=== PATIENT | male | born 1980 | race Caucasian/White ===

== ENCOUNTER 2024-03-28 13:17 | Emergency (ER) | payer OTHER, SELFPAY ==
[2024-03-28 13:20] VITALS: BP 122/64
[2024-03-28 13:24] VITALS: BMI 27.5
[2024-03-28 13:34] LABS: Glucose - Point of Care 343 mg/dl (70-99)
--- NOTE | 2024-03-28 13:38 | ED.GENMED ---
History of Present Illness
General
Chief Complaint: Crisis Evaluation
Source: patient and previous hospital records
Exam Limitations: none
Time Seen by Provider: 03/28/24 13:37
Nursing documentation reviewed up to this point in time: agreed with
Travel History
Have you had any contact with someone who has COVID-19?: No
Do you have any symptoms of coronavirus? Fever > 100 degrees, chills, cough, shortness of breath, sore throat, loss of taste or smell, muscle aches, or headache?: No
History of Present Illness
History of Present Illness:
43-year-old male with history of type 1 diabetes mellitus, uncontrolled, schizoaffective disorder bipolar disorder presents for medical clearance patient denies headache, chest pain, trouble breathing or abdominal pain. He denies N/V/D/C.
Crisis states he is 302 for inability to care for himself, assistant case manager through [facility]'s 302 him because he was claiming he was not taking his medication. The [address] Whiteside to evaluate pt.
Past History
Past History
ED Past Medical History: HTN, Hypercholesterolemia, NIDDM, Psychiatric (Bipolar, ADHD, schizophrenia) and Other (Thrombocytopenia, fatty liver)
ED Past Surgical History: Appendectomy
Social History
Tobacco: Non-smoker
Alcohol: None
Drug: Former user (Cocaine/Meth)
Personal:
Living: with family
Family History
Family History: Negative Diabetes
Review of Systems
Review of Systems
Allergies reviewed?: Yes
All Other Systems: ROS reviewed and negative except as documented in HPI and ROS
Constitutional: Denies fever
Respiratory: Denies trouble breathing
Cardiac: Denies chest pain
ABD/GI: Denies abdominal pain, nausea, vomiting or diarrhea
Musculoskeletal: Reports no symptoms
Skin: Reports no symptoms
Neurological: Denies headache
Phy Exam
Physical Exam
Physical Exam:
GENERAL: No acute distress. A&Ox3.
CONSTITUTIONAL: Afebrile.
EYES: PERRL, conjunctivae normal
ENMT: moist mucus membranes, Pharynx nl
RESPIRATORY: Regular respirations, nonlabored, lungs clear.
CARDIOVASCULAR: Regular rate and rhythm, no murmurs, no rubs.
GI: Soft, nontender, normal BS
MUSCULOSKELETAL: Moves with ease. Well perfused.
SKIN: Warm, dry, pink
PSYCH: Normal mood and affect. Well kept, interactive and appropriate
NEUROLOGIC: Awake, alert and oriented. No focal neurological deficits
Course
Orders/Labs/Results
Orders:
Orders
03/28/24 13:49
Alcohol Urgent
Complete Blood Count/With Diff Urgent
Comprehensive Metabolic Panel Urgent
Hemoglobin A1c [Glycohemoglobin (HgbA1c)] Urgent
[place] Urgent
03/28/24 15:40
Insulin Human Regular [Novolin R] 10 units IV NOW STA
03/28/24 16:08
Insulin Aspart [NOVOLOG vial] 10 units SC NOW STA
03/28/24 18:28
0.9% Sodium Chloride 1000 ml [Nss] 1,000 ml IV BOLUS
03/28/24 18:47
Drug Screen, Urine [Urine Drug Abuse Screen] Urgent
Date Specimen was Collected: 03/28/24
Time Specimen was Collected: 06:45
03/28/24 20:00
Benztropine [Cogentin] 0.5 mg PO BID
[place] Carbonate Extended Rel [Lithobid (Extended Release)] 600 mg PO BID
Risperidone [Risperdal] 2 mg PO BID
03/28/24 20:24
Bedside Glucose- Treatment ONCE
03/28/24 22:00
Trazodone [Desyrel] 100 mg PO HS
03/29/24 01:10
Dextrose 50%-Water [Dextrose 50% Syringe] 12.5 grams IV [id number] PRN
Glucagon [GlucaGen] 1 mg IM PRN PRN
Bedside Glucose Monitoring As Directed
Frequency: AC&HS
Additional Instructions:: Change to q6h if pt on TPN, tube feeding or not eating
03/29/24 01:11
Accucheck [Bedside Glucose Monitoring] As Directed
Frequency: q4h
03/29/24 01:47
Accucheck [Bedside Glucose Monitoring] As Directed
Frequency: AC&HS
03/29/24 Breakfast
1800 calorie (15 carb) Diabetic
At Your Request: Full Participation
03/29/24 07:30
Insulin Aspart Corrective Low [Novolog Flexpen-Low Resistance] See Protocol SC AC
Abnormal Lab Results
03/28/24 03/28/24 03/28/24
13:19 13:49 17:42
MPV 12.7 H fL
(7.4-10.4)
Sodium 134 L mmol/L
(135-145)
BUN 8 L mg/dl
(9-20)
Creatinine 0.4 L mg/dL
(0.7-1.3)
Glucose 354 H mg/dl
(70-99)
[place] 0.5 L mmol/L
(0.6-1.2)
POC Glucose 343 H mg/dl 299 H mg/dl
(70-99) (70-99)
03/28/24 03/28/24 03/28/24
18:42 20:45 22:32
MPV
Sodium
BUN
Creatinine
Glucose
[place]
POC Glucose 323 H mg/dl 215 H mg/dl 220 H mg/dl
(70-99) (70-99) (70-99)
03/28/24 03/29/24
23:34 04:21
MPV
Sodium
BUN
Creatinine
Glucose
[place]
POC Glucose 261 H mg/dl 267 H mg/dl
(70-99) (70-99)
03/28/24 13:49
03/28/24 19:45
Vital Signs
Initial and Last Documented VS:
Initial Vital Signs
Temp Pulse Resp BP Pulse Ox
98.1 F 95 18 122/64 99
03/28/24 13:20 03/28/24 13:20 03/28/24 13:20 03/28/24 13:20 03/28/24 13:20
Last Documented Vital Signs
Temp Pulse Resp BP Pulse Ox
98.6 F 88 16 95/56 98
03/28/24 18:37 03/29/24 06:53 03/29/24 06:53 03/29/24 06:53 03/29/24 06:53
MDM/Problems Addressed
MDM/Problems Addressed:
43-year-old male with history of type 1 diabetes mellitus, uncontrolled, schizoaffective disorder bipolar disorder presents
Crisis states he is 302 for inability to care for himself, assistant case manager through [facility]'s 302 him because he was claiming he was not taking his medication. The [address] Whiteside to evaluate pt.
CBC normal
CMP glucose 354 otherwise normal
[place] level 0.5, (0.6-1.2 therapeutic)
6:[address] Cervantes upholds the 302, wrote medication orders.
Until blood sugar is less than 200, psyche facility will not take him.
After Insulin BS 299 at 5:42
Pt resting, quiet with intermittent loud verbal outbursts
Case discussed with Dr. Alves who will assume care from this point
*Critical Care Note
Total Time (30-74mins, 75-104mins- exclusive of procedures): Not Applicable
ED Attending Note
-
Portions of this chart may have been created with voice recognition software.� Occasional wrong word or��sound alike� substitutions may have occurred due to the inherent limitations of voice recognition software.
Discharge Plan
Departure
Patient Disposition: Psych Facility
Date of Disposition: 03/29/24
Time of Disposition: 06:09
Patient Status:: 302
Discharge Problem:
Schizophrenia
Prescriptions:
No Action
(DME) pen needle, diabetic 1 EACH needle
1 ea MC ACHS Qty: 100 0RF
(DME) lancets 1 EACH misc
1 ea MC QID Qty: 200 0RF
Rx Instructions:
Contour next lancets
E11.65
(DME) Accu-Chek Guide test strips 1 EACH strip
1 ea MC ACHS Qty: 200 0RF
insulin glargine [Lantus Solostar U-100 Insulin] 300 UNITS/3 ML insulin pen
20 units SC HS
cholecalciferol (vitamin D3) 2,000 UNITS tablet
4,000 units PO DAILY
cyanocobalamin (vitamin B-12) 1,000 MCG tablet
1,000 mcg PO DAILY
trazodone 50 mg Tablet
50 mg PO HS PRN (Reason: insomnia) 7 Days Qty: 7 0RF
lorazepam 0.5 mg Tablet
0.5 mg PO TID 3 Days Qty: 9 0RF
lithium carbonate 300 mg Capsule
600 mg PO BID 30 Days Qty: 120 0RF
benztropine 1 mg Tablet
1 mg PO BID PRN (Reason: stiffness) 2 Days Qty: 4 0RF
lorazepam 1 mg Tablet
0.5 mg PO Q8HPRN PRN (Reason: agitation/anxiety) 2 Days Qty: 6 0RF
insulin aspart U-100 [Novolog FlexPen U-100 Insulin] 100 unit/mL (3 mL) Insulin Pen
8 unit SC AC 30 Days Qty: 7.2 0RF
risperidone 0.5 mg Tablet,Disintegrating
0.5 mg PO Q4HPRN PRN (Reason: agitation) 1 Days Qty: 6 0RF
risperidone 1 mg Tablet,Disintegrating
2 mg PO HS 30 Days Qty: 60 0RF
risperidone 1 mg Tablet,Disintegrating
1 mg PO DAILY 30 Days Qty: 30 0RF
Referrals:
UNKNOWN,NO INTERVIEW [Family Provider] -
Interventions
Interventions:
*Risk Screen - Suicide Last Done: 03/28/24 13:20
*General Assessment Last Done: 03/28/24 13:20
*Neglect/Abuse Screening Last Done: 03/28/24 13:20
ED-Psychological Assessment Last Done: 03/29/24 06:53
Discharge Date and Time
Print Language: GABONESE
[2024-03-28 14:03] LABS: % Basophils 1.2 % (0-2); % Eosinophils 5.2 % (0-6); % Immature Granulocytes 0.3 % (0-0.5); % Lymphocytes 28.9 % (20.5-51.1); % Neutrophils 58.4 % (42.2-75.2); Absolute Basophils 0.1 10^3/uL (0-0.2); Absolute Eosinophils 0.4 10^3/uL (0-0.7); Absolute Lymphocytes 2.2 10^3/uL (1.2-3.4); Absolute Monocytes 0.5 10^3/uL (0.1-0.6); Absolute Neutrophils 4.5 10^3/uL (1.4-6.5); Hematocrit 42.4 % (39.0-52.0); Hemoglobin 14.4 g/dL (13.0-18.0); Mean Corpuscular Hgb 29.1 pg (27.0-31.0); Mean Corpuscular Volume 85.7 fL (80.0-94.0); Mean Platelet Volume 12.7 fL (7.4-10.4); Nucleated Red Blood Cells % 0 % (-); Platelet Count 146 10^3/uL (130-400); Red Blood Cell Count 4.95 10^6/uL (4.70-6.10); Red Cell Dist. Width 12.8 % (11.5-14.5); White Blood Cell Count 7.6 10^3/uL (4.8-10.8)
[2024-03-28 14:24] LABS: ALT (SGPT) 14 U/L (0-50); AST (SGOT) 17 U/L (17-59); Albumin 4.7 g/dl (3.5-5.0); Alkaline Phosphatase 112 U/L (38-126); Blood Urea Nitrogen 8 mg/dl (9-20); Calcium 9.7 mg/dl (8.4-10.2); Carbon Dioxide 22 mmol/L (22-30); Chloride 98 mmol/L (98-107); Estimated Creatinine Clearance > 125 ml/min; Glucose 354 mg/dl (70-99); Lithium 0.5 mmol/L (0.6-1.2); Potassium 4.3 mmol/L (3.5-5.1); Sodium 134 mmol/L (135-145); Total Bilirubin 0.8 mg/dl (0.2-1.3); Total Protein 7.8 g/dl (6.3-8.2); eGFR > 60.00
[2024-03-28 14:27] LABS: Alcohol None Detected
[2024-03-28] MEDS: NOVOLOG vial 10 UNITS SC (16:14)
--- NOTE | 2024-03-28 16:47 | W.PN.UPDATE ---
Update Note
Progress Note Update
Pt is 43 yo male brought in on 302 by supervisor residential at [facility], for reportedly refusal to continue taking Insulin, suicidal ideation. On exam, pt unkempt, disheveled, slowed, with flat affect, indifferent attitude about risks of not taking
Insulin. Pt mostly admits to the 302 allegations, states he is tired of taking Insulin or doing the work involved in taking care of his diabetes. Briefly reviewed the [facility] outpatient record, medications. Joyce level 0.5 at 1349 today.
Imp: Schizoaffective d/o, bipolar type, depressed
Rec: 302 upheld. Will continue evaluation/observation/ inpatient psych placement effort
Will continue current outpatient medications. Will follow
[2024-03-28 17:43] LABS: Glucose - Point of Care 299 mg/dl (70-99)
[2024-03-28 18:37] VITALS: BP 107/68
[2024-03-28 18:43] LABS: Glucose - Point of Care 323 mg/dl (70-99)
[2024-03-28 19:09] LABS: Amphetamines Negative (Negative); Barbiturates Negative (Negative); Benzodiazepines Negative (Negative); Buprenorphine Negative (Negative); Cocaine Negative (Negative); Marijuana Negative (Negative); Methadone Negative (Negative); Methamphetamines Negative (Negative); Opiates Negative (Negative); Phencyclidine Negative (Negative); Tricyclic Antidepressants Negative (Negative)
[2024-03-28] MEDS: COGENTIN 0.5 MG PO (20:00)
[2024-03-28] MEDS: LITHOBID (EXTENDED RELEASE) 600 MG PO (20:00)
[2024-03-28] MEDS: RISPERDAL 2 MG PO (20:00)
[2024-03-28 20:46] LABS: Glucose - Point of Care 215 mg/dl (70-99)
[2024-03-28 22:34] LABS: Glucose - Point of Care 220 mg/dl (70-99)
[2024-03-28 23:35] LABS: Glucose - Point of Care 261 mg/dl (70-99)
--- NOTE | 2024-03-29 01:13 | ED.CRISIS ---
ED Crisis Note
ED Crisis Note
Subjective:
Managing diabetic orders. Blood sugar 200+.
Assessment/Plan:
Low insulin order set ordered with the help of the hospitalist. He did not assume any care of the patient. He was assisting in ordering the insulin order set.
[2024-03-29 04:23] LABS: Glucose - Point of Care 267 mg/dl (70-99)
[2024-03-29 06:53] VITALS: BP 95/56
[2024-03-29] MEDS: COGENTIN 0.5 MG PO ×2 (08:05→20:21)
[2024-03-29] MEDS: LITHOBID (EXTENDED RELEASE) PO ×2 (08:05→08:07)
[2024-03-29] MEDS: RISPERDAL 2 MG PO ×2 (08:05→20:21)
[2024-03-29 08:53] LABS: Glycohemoglobin (HgbA1c) 15.3 % (4.0-5.6)
[2024-03-29] MEDS: NOVOLOG FLEXPEN-LOW RESISTANCE 3 UNITS SC (09:04)
[2024-03-29 09:57] LABS: Glucose - Point of Care 345 mg/dl (70-99)
[2024-03-29] MEDS: NOVOLOG vial 10 UNITS SC (10:07)
[2024-03-29 13:09] LABS: Glucose - Point of Care 217 mg/dl (70-99)
[2024-03-29] MEDS: NOVOLOG FLEXPEN-LOW RESISTANCE 2 UNITS SC (13:09)
--- NOTE | 2024-03-29 15:37 | CON.MD ---
Consultation - Medical
-
patient seen chart reviewed. mr thornton is well known to me from [facility] where he was seen in out patient and in the php. he is currently residing in their housing. he has a hx of schizoaffective d/o bipolar type and has had
many hospital stays and was rx several x in the php as well in the past. he has been on many antipsychotic medications as well as mood stabilizers in the past but currently lithium carbonate 1200 mg daily trazodone 100 mg q hs and risperdal 2 mg po
bid and cogentin which have been ordered. lithium level is o.5 patient was 302 committed petition filed by personnel at the home where he lives (it is a f facility) alleging he told them he was committing suicide by not taking care of his iddm
....not taking his insulin or monitoring blood sugar etc. he told me he was tired of his legal issues. said he is on 'seven years parole' (did he mean probation?) sleep not great appetite ok he is not currently evidencing overt psychosis. he
is not currently suicidal.
past psych hx see above
medical hx blood sugar elevated currently 217 had been 346 A1c 15.3 ua ketones
fh none
substance tox screen clean hx of using cannabis in past.
social hx lives in f housing. mom supportive see above re legal issues
mse alert ox3 a bit disheveled cooperative speech and thought process nl no overt psychosis depressed affect sravan denied current si insight judgment lacking
dx schizoaffective d.o depressed currently bipolar type
plan continue w current meds. blood sugar will have to be under 200 for psych may need to file a 303 tomorrow as hearings are on wednesday and psych won't take him if the 302 is almost ativan prn agitation anxiety
[2024-03-29 17:55] LABS: Glucose - Point of Care 303 mg/dl (70-99)
[2024-03-29] MEDS: NOVOLOG FLEXPEN-LOW RESISTANCE 4 UNITS SC (17:55)
[2024-03-29 19:11] VITALS: BP 129/85
[2024-03-29] MEDS: LITHOBID (EXTENDED RELEASE) 600 MG PO (20:21)
[2024-03-29 21:31] LABS: Glucose - Point of Care 505 mg/dl (70-99)
[2024-03-29] MEDS: LANTUS 0.25 UNITS SC (21:33)
[2024-03-30 06:33] LABS: Glucose - Point of Care 253 mg/dl (70-99)
[2024-03-30] MEDS: LITHOBID (EXTENDED RELEASE) PO ×2 (07:18→07:29)
[2024-03-30] MEDS: RISPERDAL 2 MG PO ×2 (07:18→20:15)
[2024-03-30] MEDS: COGENTIN 0.5 MG PO ×2 (07:25→20:15)
--- NOTE | 2024-03-30 07:27 | CON.HOSP ---
Family Physician
-
Family Physician: NO INTERVIEW UNKNOWN
Chief Complaint
-
Hyperglycemia
History of Present Illness
43 male insulin-dependent diabetes schizoaffective disorder from [place] [address] by residential education and outreach coordinator due to concerns reported suicidal ideation patient reportedly refusing to take his diabetic medications insulin and
attempt to commit suicide. Evaluated by psychiatry 302 has been upheld. Awaiting placement in psychiatric hospital however will not take while his sugars remain uncontrolled. Hospitalist consulted for help diabetes management. Patient at this
time in no acute distress vital signs stable calm cooperative ambulating without issues. Denies pain. Reports polydipsia polyphagia denies polyuria. Currently denies thoughts of harming self or others. Calm cooperative compliant with medications
given here. Has not required as needed Ativan so far. A1c 15.3 uncontrolled diabetes, hyperglycemia, and mild pseudohyponatremia-otherwise labs unremarkable.
Medical History
Past Medical History
Past Medical History: Reports Other (As above)
Past Surgical History: Reports Other (As above)
Family History
Family History: Reviewed & Not Pertinent
Allergies / Home Medications
Allergies reflects when Allergies were last updated in [employer].
Home Medications with original date entered in [employer]
Allergy/Medication List:
Allergies
Allergy/AdvReac Type Severity Reaction Status Date / Time
No Known Allergies Allergy Verified 03/28/24 13:20
Home Medications
insulin glargine 100 unit/mL (3 mL) subcutaneous pen (Lantus Solostar U-100 Insulin) 25 units SC HS Diabetes 01/21/22
insulin aspart U-100 100 unit/mL (3 mL) subcutaneous pen (Novolog FlexPen U-100 Insulin aspart) 8 unit (0.08 mL) SC AC 30 days #7.2 mL 04/22/22
benztropine 0.5 mg tablet 0.5 mg PO BID 03/29/24
lithium carbonate 600 mg capsule 1,200 mg PO HS 03/29/24
metformin 850 mg tablet 850 mg PO BID 03/29/24
risperidone 2 mg tablet 2 mg PO DAILY 03/29/24
risperidone 3 mg tablet 3 mg PO HS 03/29/24
Review of Systems
-
A 12 point Review of Systems was completed except as noted: Yes
Constitutional: Reports Other (As below)
Physical Exam
Vital Signs
Vital Signs
Temp Pulse Resp BP Pulse Ox
98.6 F 99 16 129/85 100
03/28/24 18:37 03/29/24 19:11 03/29/24 19:11 03/29/24 19:11 03/29/24 19:11
Physical Exam
General: Other (As below)
Laboratory Results
-
Laboratory Results
03/28/24 13:49
03/28/24 19:45
Total Bilirubin 0.8 mg/dl (0.2-1.3) 03/28/24 13:49
AST 17 U/L (17-59) 03/28/24 13:49
ALT 14 U/L (0-50) 03/28/24 13:49
Alkaline Phosphatase 112 U/L (38-126) 03/28/24 13:49
Impression / Plan
-
ROS
General: Denies fever chills night sweats unexpected weight loss
Neuro: Denies seizure shaking loss of consciousness dizziness vertigo
Psych: denies depression hallucinations confusion manic episodes
Endocrine: Reports polydipsia polyphagia denies polydipsia heat/cold intolerance
HEENT: Denies blindness visual disturbances epistaxis
Pulmonary: denies coughing hemoptysis sneezing sob dyspnea on exertion
Cardiovascular: denies chest pain palpitations leg swelling
Hematology: denies signs symptoms of anemia easy bruising/bleeding
Gastrointestinal: denies nausea vomiting diarrhea constipation hematemesis hematochezia melena
Genito-Urinary: denies retention incontinence dysuria
Musculoskeletal: denies joint pain weakness
Dermatology: denies rash laceration bruising
Physical Exam
General: No pallor, cyanosis, or jaundice.
HEENT: Throat clear. PERRLA Normocephalic atraumatic
NECK: Supple. No JVD Carotid Bruits
RESPIRATORY: Lungs clear to auscultation. No crackles wheezes stridor
CVS: S1, S2 normal. RRR. No murmur, rub or gallop.
ABDOMEN: Soft, non-tender. No distension. BS+/normal.
EXTREMITIES: No peripheral cyanosis or edema.
METAL MINER: AOx3
Psych: Calm cooperative denies current suicidal ideation and thoughts of harming self or others
IMPRESSION:
43 male insulin-dependent diabetes schizoaffective disorder from [place] [address] by residential education and outreach coordinator due to concerns reported suicidal ideation patient reportedly refusing to take his diabetic medications insulin and
attempt to commit suicide. Evaluated by psychiatry 302 has been upheld. Awaiting placement in psychiatric hospital however will not take while his sugars remain uncontrolled. Hospitalist consulted for help diabetes management. Patient at this
time in no acute distress vital signs stable calm cooperative ambulating without issues. Denies pain. Reports polydipsia polyphagia denies polyuria. Currently denies thoughts of harming self or others. Calm cooperative compliant with medications
given here. Has not required as needed Ativan so far. A1c 15.3 uncontrolled diabetes, hyperglycemia, and mild pseudohyponatremia-otherwise labs unremarkable.
PLAN:
#302 suicidal ideation
#Schizoaffective disorder
Management as per psych
#Diabetes uncontrolled hyperglycemia
Resume home diabetic medications
Metformin 850 mg p.o. twice daily
Lantus 25 units at bedtime
Premeal insulin 8 units, hold if not eating
Diabetes nursing practitioner consult requested
Continue disposition efforts transfer to inpatient psych hospital as per psych
Will continue to follow
I spent a total of 75 minutes with the patient or on the floor. More than 50% of this time involved counseling and coordination of care.
[2024-03-30 09:05] VITALS: BP 119/73
[2024-03-30] MEDS: GLUCOPHAGE 850 MG PO ×2 (09:06→18:08)
[2024-03-30 09:09] LABS: Glucose - Point of Care 272 mg/dl (70-99)
[2024-03-30] MEDS: NOVOLOG FLEXPEN-LOW RESISTANCE 3 UNITS SC ×2 (09:10→18:00)
[2024-03-30] MEDS: NOVOLOG FLEXPEN 8 UNITS SC (09:11)
--- NOTE | 2024-03-30 09:55 | PN.DE.MGMTRT ---
Insulin Management
- -
03/30/2024 Diabetes Management Consult
Patient presented to ED for crisis evaluation. Currently living in [facility], CW concerned patient refusing to take insulin in an attempted suicide. PMH includes schizoaffective disorder, bipolar, depression, HCL, HTN, type 2 diabetes
requiring insulin.
Patient is awake alert and laying flat. Attempted to discuss his diabetes management prior to admission. He states he has been diagnosed with diabetes for 30 years. Originally took glipizide and metformin but then in 2019 transitioned to insulin.
Patient states he has not taken his insulin in over a year or tested his blood sugar during that time. A1C is 15.3%, cr .4, eGFR >60.
Patient received 25 units lantus @ hs last evening, fasting glucose this AM 272. Will increase HS lantus to 28 units.
Received reported home dose of novolog 8 units this AM with 3 units corrective insulin and 850mg metformin. Will assess pre lunch glucose and adjust insulin if needed.
Patient for possible in patient psych treatment facility.
Diabetes History
- -
Type of Diabetes: 2 requiring insulin
Pre-Admission Diabetes Regimen
Lab Results
Hemoglobin A1c 15.3 % (4.0-5.6) H 03/28/24 13:49
Insulin Pump Settings
IP Diabetes Regimen
03/29/24 03/29/24 03/29/24
09:56 13:08 17:54
POC Glucose 345 H 217 H 303 H
03/29/24 03/30/24 03/30/24
21:30 06:30 09:08
POC Glucose 505 H* 253 H 272 H
Patient Education
[2024-03-30 12:35] LABS: Glucose - Point of Care 203 mg/dl (70-99)
--- NOTE | 2024-03-30 13:14 | W.PN.UPDATE ---
Update Note
Progress Note Update
patient seen chart reviewed. patient is being cooperative with staff here who are managing his psych and his diabetic meds. blood sugar is too high for tf to psych . dr layne and ms che now managing. patient is requesting to take all lithium
q hs which is fine even preferable. we will go forward with 303 and continue efforts to get him in psych facility once dm is adequately managed.
[2024-03-30] MEDS: NOVOLOG FLEXPEN-LOW RESISTANCE 2 UNITS SC (13:23)
[2024-03-30] MEDS: NOVOLOG FLEXPEN 10 UNITS SC ×2 (13:32→18:00)
[2024-03-30] MEDS: NOVOLOG FLEXPEN SC (15:09)
[2024-03-30 18:00] LABS: Glucose - Point of Care 259 mg/dl (70-99)
[2024-03-30] MEDS: LITHOBID (EXTENDED RELEASE) 600 MG PO (20:15)
[2024-03-30 22:15] LABS: Glucose - Point of Care 252 mg/dl (70-99)
[2024-03-30] MEDS: LANTUS 0.280000000000000027 UNITS SC (22:51)
[2024-03-30 23:30] VITALS: BP 111/69
--- NOTE | 2024-03-31 07:19 | W.PN.HOSP.TC ---
Today's Communication/Plan
-
Increased insulin regimen as per DM RAW SAMPLER
cont disposition efforts transfer to inpt psych
Assessment / Plan
Assessment / Plan
Physical Exam
General: No pallor, cyanosis, or jaundice.
HEENT: Throat clear. PERRLA Normocephalic atraumatic
NECK: Supple. No JVD Carotid Bruits
RESPIRATORY: Lungs clear to auscultation. No crackles wheezes stridor
CVS: S1, S2 normal. RRR. No murmur, rub or gallop.
ABDOMEN: Soft, non-tender. No distension. BS+/normal.
EXTREMITIES: No peripheral cyanosis or edema.
CYTOGENETICIST: AOx3
Psych: Calm cooperative denies current suicidal ideation and thoughts of harming self or others
IMPRESSION:
43 male insulin-dependent diabetes schizoaffective disorder from [place] [address] by residential business continuity coordinator due to concerns reported suicidal ideation patient reportedly refusing to take his diabetic medications insulin and
attempt to commit suicide. Evaluated by psychiatry 302 has been upheld. Awaiting placement in psychiatric hospital however will not take while his sugars remain uncontrolled. Hospitalist consulted for help diabetes management. Patient at this
time in no acute distress vital signs stable calm cooperative ambulating without issues. Denies pain. Reports polydipsia polyphagia denies polyuria. Currently denies thoughts of harming self or others. Calm cooperative compliant with medications
given here. Has not required as needed Ativan so far. A1c 15.3 uncontrolled diabetes, hyperglycemia, and mild pseudohyponatremia-otherwise labs unremarkable.
PLAN:
#302 suicidal ideation
#Schizoaffective disorder
Management as per psych
#Diabetes uncontrolled hyperglycemia
Resume home diabetic medications
Metformin 850 mg p.o. twice daily
home Lantus 25 units at bedtime
home Premeal insulin 8 units
03/31 Diabetes nursing practitioner consult appreciated agree increase in Lantus HS to 32U and Premeal insulin increased to 14
Continue disposition efforts transfer to inpatient psych hospital as per psych
Will continue to follow
I spent a total of 35 minutes with the patient or on the floor. More than 50% of this time involved counseling and coordination of care.
Anticipated Discharge: 24 - 48 hours
Subjective/Interval History
-
Date of Service: March 31, 2024
Seen and examined at bedside no acute distress resting comfortably in bed. Denies new acute issues. Flat affect.
Objective Data
-
Vital Signs:
Vital Signs
Temp Pulse Resp BP Pulse Ox
97.8 F 88 16 111/69 98
03/30/24 09:05 03/30/24 23:30 03/30/24 23:30 03/30/24 23:30 03/30/24 23:30
--- NOTE | 2024-03-31 07:43 | PN.DE.MGMTRT ---
Insulin Management
- -
03/31/2024 Diabetes Management Follow up
Patient presented to ED for crisis evaluation. Currently living in [facility], CW concerned patient refusing to take insulin in an attempted suicide. PMH includes schizoaffective disorder, bipolar, depression, HCL, HTN, type 2 diabetes
requiring insulin.
Patient is awake alert and laying flat. Attempted to discuss his diabetes management prior to admission. He states he has been diagnosed with diabetes for 30 years. Originally took glipizide and metformin but then in 2019 transitioned to insulin.
Patient states he has not taken his insulin in over a year or tested his blood sugar during that time. A1C is 15.3%, cr .4, eGFR >60.
Patient received 25 units lantus @ hs last evening, fasting glucose not reported yet. Glucose range yesterday 203 to 259.
Novolog increased to 14 units AC with corrective insulin. I spoke to patient nurse, she will text fasting glucose when obtained.
Patient for possible in patient psych treatment facility.
Diabetes History
- -
Type of Diabetes: 2 requiring insulin
Pre-Admission Diabetes Regimen
Lab Results
Hemoglobin A1c 15.3 % (4.0-5.6) H 03/28/24 13:49
Insulin Pump Settings
IP Diabetes Regimen
03/30/24 03/30/24 03/30/24
09:08 12:34 17:59
POC Glucose 272 H 203 H 259 H
03/30/24
22:14
POC Glucose 252 H
Patient Education
[2024-03-31 09:09] LABS: Glucose - Point of Care 213 mg/dl (70-99)
[2024-03-31 09:30] VITALS: BP 121/76
[2024-03-31] MEDS: LITHOBID (EXTENDED RELEASE) 600 MG PO (10:02)
[2024-03-31] MEDS: GLUCOPHAGE 850 MG PO (10:02)
[2024-03-31] MEDS: COGENTIN 0.5 MG PO (10:03)
[2024-03-31] MEDS: RISPERDAL 2 MG PO (10:03)
[2024-03-31] MEDS: NOVOLOG FLEXPEN-MODERATE RESISTANCE 3 UNITS SC (10:04)
[2024-03-31] MEDS: NOVOLOG FLEXPEN 14 UNITS SC (10:06)
[2024-03-31 13:14] LABS: Glucose - Point of Care 79 mg/dl (70-99)
--- NOTE | 2024-03-31 13:32 | W.PN.UPDATE ---
Update Note
Progress Note Update
patient seen chart reviewed. blood sugars in sufficient control to allow for transfer to [facility] this am. suki was appropriate. we discussed upcoming hearing. he agreed to stipulate to up to 15 days in patient treatment and was dc'ed to
[facility] after the commitment hearing this am.
[2024-03-31] MEDS: NOVOLOG FLEXPEN SC (14:18)
[2024-03-31] MEDS: NOVOLOG FLEXPEN-MODERATE RESISTANCE SC (14:19)
== END 2024-03-31 13:40 ==
LOC: EMR 13:17
PROVIDERS: Registered Nurse; EMERGENCY PHYSICIAN Emergency Medicine; OTHER PHYSICIAN Psychiatry & Neurology Psychiatry
DX: R45.851 Suicidal ideations (principal); F25.0 Schizoaffective disorder, bipolar type; Z02.79 Encounter for issue of other medical certificate; E10.65 Type 1 diabetes mellitus with hyperglycemia; Z91.128 Patient's intentional underdosing of medication regimen for other reason; I10 Essential (primary) hypertension; E10.9 Type 1 diabetes mellitus without complications; E78.00 Pure hypercholesterolemia, unspecified; K76.0 Fatty (change of) liver, not elsewhere classified; F90.9 Attention-deficit hyperactivity disorder, unspecified type
CPT/HCPCS: 99285; 96374; 96372 ×12; 80053; 80178; 80306; 82077; 82962; 83036; 85025

== ENCOUNTER 2024-06-08 17:39 | Emergency (ER) | payer OTHER, SELFPAY ==
[2024-06-08 17:41] VITALS: BP 134/85
--- NOTE | 2024-06-08 18:27 | ED.GENMED ---
History of Present Illness
<Isha Young PA-C - Last Filed: 06/08/24 21:42>
General
Chief Complaint: Skin Surface Trauma
Source: patient
Exam Limitations: none
Time Seen by Provider: 06/08/24 18:25
Nursing documentation reviewed up to this point in time: agreed with
History of Present Illness
History of Present Illness:
This is a 43 y/o male with a hx of insulin dependent diabetes, bipolar disorder, ADHD, presenting to the emergency department today with concerns to a cut to his finger following an injury with a metal can. Patient states that he was opening a metal
can when he cut the tip of his finger. He notes some mild bleeding. Patient notes deformity to his finger nail. Patient denies any bony pain, inability to range hand or fingers. Patient states that he is not up to date on his tetanus vaccination.
Patient denies any other injuries.
Past History
<Isha Young PA-C - Last Filed: 06/08/24 21:42>
Past History
ED Past Medical History: HTN, Hypercholesterolemia, NIDDM, Psychiatric (Bipolar, ADHD, schizophrenia) and Other (Thrombocytopenia, fatty liver)
ED Past Surgical History: Appendectomy
Social History
Tobacco: Non-smoker
Alcohol: None
Drug: Former user (Cocaine/Meth)
Personal:
Living: with family
Family History
Family History: Negative Diabetes
Review of Systems
<Isha Young PA-C - Last Filed: 06/08/24 21:42>
Review of Systems
All Other Systems: ROS reviewed and negative except as documented in HPI and ROS
Phy Exam
<GUERLINE Bowser Last Filed: 06/08/24 21:42>
Physical Exam
Physical Exam:
General: Patient is well appearing and in no acute distress; non-toxic
Skin: Warm and dry, no rashes or erythema. there is a jagged edge to the tip of the first right fingernail. No subungual hematoma. No active bleeding. There is a small abrasion to the lateral aspect of the first right DIP. Brisk capillary refill.
Head: Normocephalic, atraumatic
Eyes: Sclera non-icteric. EOMs intact.
Cardiac: Regular rate
Pulm: Normal respiratory effort
Abdomen: No abdominal tenderness
Musculoskeletal: Full range of motion and 5/5 strength of bilateral phalanges. No bony tenderness to palpation. No palpable bony deformities.
Psychiatric: Appropriate mood and affect.
Course
<Isha Young PA-C - Last Filed: 06/08/24 21:42>
Orders/Labs/Results
Orders:
Orders
06/08/24 18:51
Tetanus/Diphth/Acelpertussis [Adacel] 0.5 ml IM .ONCE ONE
Vital Signs
Initial and Last Documented VS:
Initial Vital Signs
Temp Pulse Resp BP Pulse Ox
98.5 F 99 18 134/85 98
06/08/24 17:41 06/08/24 17:41 06/08/24 17:41 06/08/24 17:41 06/08/24 17:41
Last Documented Vital Signs
Temp Pulse Resp BP Pulse Ox
98.5 F 99 18 134/85 98
06/08/24 17:41 06/08/24 17:41 06/08/24 17:41 06/08/24 17:41 06/08/24 17:41
<Yulisa Kamara DO - Last Filed: 06/08/24 19:32>
Orders/Labs/Results
Orders:
Orders
06/08/24 18:51
Tetanus/Diphth/Acelpertussis [Adacel] 0.5 ml IM .ONCE ONE
Vital Signs
Initial and Last Documented VS:
Initial Vital Signs
Temp Pulse Resp BP Pulse Ox
98.5 F 99 18 134/85 98
06/08/24 17:41 06/08/24 17:41 06/08/24 17:41 06/08/24 17:41 06/08/24 17:41
Last Documented Vital Signs
Temp Pulse Resp BP Pulse Ox
98.5 F 99 18 134/85 98
06/08/24 17:41 06/08/24 17:41 06/08/24 17:41 06/08/24 17:41 06/08/24 17:41
<Isha Young PA-C - Last Filed: 06/08/24 21:42>
MDM/Problems Addressed
Differential Diagnosis Includes:
ddx include abrasion, laceration, nail bed injury
MDM/Problems Addressed:
Nail injury:
This is a 43 y/o male with a hx of insulin dependent diabetes, bipolar disorder, ADHD, presenting to the emergency department today with concerns to a cut to his finger following an injury with a metal can. On physical exam, he has a jagged edge to
tip of nail but no subungual hematoma, no laceration. His finger was thoroughly irrigated and his tetanus was updated. Patient was stable for discharge.
Chronic conditions affecting care:
psychiatric illness, diabetes
Acute Exacerbation and/or Progression of Chronic Illness:
n/a
<Isha Young PA-C - Last Filed: 06/08/24 21:42>
*Pulse Oximetry
Patient hypoxic: no
*Critical Care Note
Total Time (30-74mins, 75-104mins- exclusive of procedures): Not Applicable
Data Reviewed
Review of Other/Old Records Reveals: Records (reviewed most recent ER physician documentation from March, patient was seen in crisis for schizophrenia )
Source: patient and records
Prescriptions/Medications Considered But Not Given:
n/a
Further Testing Considered But Not Given:
n/a
ED Attending Note
<Isha Young PA-C - Last Filed: 06/08/24 21:42>
-
Portions of this chart may have been created with voice recognition software.� Occasional wrong word or��sound alike� substitutions may have occurred due to the inherent limitations of voice recognition software.
<Yulisa Kamara DO - Last Filed: 06/08/24 19:32>
ED Attending Note
Patient seen and examined by attending physician: Yes
I performed the substantive portion of visit, reviewed & personally made and approve the management plan that is documented in note by myself or GILBERTO.: Yes
I performed a history and physical exam of patient and discussed management with resident, I reviewed resident's note and agree with documented findings and plan of care.: Yes
ED Attending Note:
43-year-old male presenting for injury to the right first digit. Reports that he cut himself on metal prior to arrival. Tetanus status unknown. Denies numbness or tingling to his finger. Denies issues with range of motion. Vital signs normal.
On exam, patient mostly cut the tip of the nail without compromise to the nailbed. No compromise to the tip of the finger. Small injury at the lateral aspect of the DIP. No signs of any foreign body. No swelling or erythema. Range of motion
intact. Suspect small superficial injury. Date tetanus. Otherwise no indication for imaging or additional treatment. Feel stable for discharge with continued outpatient supportive therapy.
Discharge Plan
Departure
Patient Disposition: Home (Routine Discharge)
Date of Disposition: 06/08/24
Time of Disposition: 18:59
Patient with high blood pressure during this ER visit?: Yes
Condition: Good
Discharge Problem:
Finger nail contusion
Instructions: Wound Care (DC), Common Finger Injuries ED
Prescriptions:
No Action
insulin glargine [Lantus Solostar U-100 Insulin] 300 UNITS/3 ML insulin pen
25 units SC HS
insulin aspart U-100 [Novolog FlexPen U-100 Insulin] 100 unit/mL (3 mL) Insulin Pen
8 unit SC AC 30 Days Qty: 7.2 0RF
benztropine 0.5 mg tablet
0.5 mg PO BID
metformin 850 mg tablet
850 mg PO BID
risperidone 3 mg tablet
3 mg PO HS
risperidone 2 mg tablet
2 mg PO DAILY
lithium carbonate 600 mg capsule
1,200 mg PO HS
Activity Restrictions/Additional Instructions:
Please take please return emergency department should you experience increasing or worsening pain, fevers or chills, purulent drainage from the wound, surrounding redness or erythema, inability to move the digits, or any other concerning signs or
symptoms to you.
Please follow-up with your primary care provider.
Interventions
Interventions:
*Risk Screen - Suicide Last Done: 06/08/24 18:18
*General Assessment Last Done: 06/08/24 18:18
*Neglect/Abuse Screening Last Done: 06/08/24 18:18
*ED COVID-19 Vaccine History Last Done: 06/08/24 18:18
*Nursing Disposition Last Done: 06/08/24 19:20
ED-Skin Assessment Last Done: 06/08/24 18:18
Discharge Date and Time
Discharge Date/Time: 06/08/24 19:32
Print Language: KINYARWANDA
[2024-06-08] MEDS: ADACEL 0.5 ML IM (19:11)
== END 2024-06-08 19:32 | disposition home or self-care (01) ==
LOC: EMR 17:39
PROVIDERS: EMERGENCY PHYSICIAN Student in an Organized Health Care Education/Training Program
DX: S60.121A Contusion of right index finger with damage to nail, initial encounter (principal); S60.410A Abrasion of right index finger, initial encounter; W26.8XXA Contact with other sharp object(s), not elsewhere classified, initial encounter; Z23 Encounter for immunization; F20.9 Schizophrenia, unspecified; E11.9 Type 2 diabetes mellitus without complications; F31.9 Bipolar disorder, unspecified; E78.00 Pure hypercholesterolemia, unspecified; I10 Essential (primary) hypertension; K76.0 Fatty (change of) liver, not elsewhere classified; F90.9 Attention-deficit hyperactivity disorder, unspecified type; D69.6 Thrombocytopenia, unspecified; Z79.4 Long term (current) use of insulin
CPT/HCPCS: 99283; 90471; 90715

== ENCOUNTER 2024-08-06 15:43 | Emergency (ER) | payer OTHER, SELFPAY ==
[2024-08-06 15:45] VITALS: BP 171/110
--- NOTE | 2024-08-06 16:07 | EDRN ---
Patient changed into behavioral health clothing. Belongings given to security (clothes, shoes, wallet, cell phone). Patient is calm and cooperative at this time.
--- NOTE | 2024-08-06 16:15 | ED.GENMED ---
History of Present Illness
General
Chief Complaint: Crisis Evaluation
Source: patient
Time Seen by Provider: 08/06/24 15:58
History of Present Illness
History of Present Illness:
43yoM with a history of schizophrenia and insulin dependent type 2 diabetes presenting for psychiatric evaluation. Patient reports having command auditory hallucinations that are telling him to kill himself. He reports active suicidal ideations with
a plan to jump off a bridge. Patient is currently maintained on Risperdal and lithium and he reports compliance with his medications. He sees a therapist at [facility] twice weekly. He is here requesting inpatient psychiatric treatment.
Past History
Past History
ED Past Medical History: HTN, Hypercholesterolemia, NIDDM, Psychiatric (Bipolar, ADHD, schizophrenia) and Other (Thrombocytopenia, fatty liver)
ED Past Surgical History: Appendectomy
Social History
Tobacco: Non-smoker
Alcohol: None
Drug: Former user (Cocaine/Meth)
Personal:
Living: with family
Family History
Family History: Negative Diabetes
Phy Exam
General Physical Exam
General Presentation: well appearing and no apparent distress
General age: appears stated age
General Skin: warm and dry
General Habitus: normal
General Mental: alert
ENT Exam
ENT Exam: normocephalic
Pulmonary Exam
Pulmonary Exam: no respiratory distress
[place] Coma Scale
Eye Opening: Spontaneous
Verbal Response: Oriented
Motor Response: Obeys Commands
GCS Total Score: 15
Skin Exam
Skin Exam: normal color and warm/dry
Psychiatric Exam
Psychiatric Exam: other (+SI. Patient maintains good eye contact. No signs of psychosis. )
Course
Orders/Labs/Results
Orders:
Orders
08/06/24 15:45
1:1 Observation - Suicide/ Violent Behavior As Directed
Crisis Consult Urgent
Reason for Consult: suicidal ideation
08/06/24 16:30
Alcohol Urgent
Complete Blood Count/With Diff Urgent
Comprehensive Metabolic Panel Urgent
Drug Screen, Urine [Urine Drug Abuse Screen] Urgent
Date Specimen was Collected: 08/06/24
Time Specimen was Collected: 16:12
[place] Urgent
08/06/24 18:00
Insulin Aspart [NOVOLOG vial] 8 units SC NOW STA
08/06/24 22:00
Insulin Glargine Lantus [Lantus] 25 units Subcutaneous Insulin Syringe [Syringe-Insulin] 0 unit SC HS
Abnormal Lab Results
08/06/24 08/06/24
16:30 18:54
RBC 4.17 L 10^6/uL
(4.70-6.10)
Hgb 12.2 L g/dL
(13.0-18.0)
Hct 36.3 L %
(39.0-52.0)
MPV 12.6 H fL
(7.4-10.4)
Absolute Neuts (auto) 6.6 H 10^3/uL
(1.4-6.5)
Absolute Monos (auto) 0.7 H 10^3/uL
(0.1-0.6)
Eosinophils % 6.2 H %
(0-6)
BUN 7 L mg/dl
(9-20)
Creatinine 0.5 L mg/dL
(0.7-1.3)
Glucose 115 H mg/dl
(70-99)
AST 15 L U/L
(17-59)
[place] 0.4 L mmol/L
(0.6-1.2)
POC Glucose 116 H mg/dl
(70-99)
08/06/24 16:30
08/06/24 16:30
Vital Signs
Initial and Last Documented VS:
Initial Vital Signs
Temp Pulse Resp BP Pulse Ox
99.3 F 106 16 171/110 100
08/06/24 15:45 08/06/24 15:45 08/06/24 15:45 08/06/24 15:45 08/06/24 15:45
Last Documented Vital Signs
Temp Pulse Resp BP Pulse Ox
99.3 F 106 16 171/110 100
08/06/24 15:45 08/06/24 15:45 08/06/24 15:45 08/06/24 15:45 08/06/24 15:45
MDM/Problems Addressed
Differential Diagnosis Includes:
43yoM presenting for a psychiatric evaluation. Hx of schizophrenia. C/o suicidal ideations with plan as well as command hallucinations. Patient requesting inpatient treatment. No signs of psychosis on exam.
Initial ED plan: Check CBC, CMP, lithium, ETOH, and UDS. Will consult crisis.
*Critical Care Note
Total Time (30-74mins, 75-104mins- exclusive of procedures): Not Applicable
Update Note
Update Note:
Labs overall unremarkable including glucose of 115. UDS and EtOH level negative. Patient medically cleared for inpatient psychiatric admission. Patient was evaluated by crisis and is agreeable to sign in voluntarily. He was accepted at [facility].
Pickup scheduled for 11pm this evening. Patient signed out to Olivier Infante PA-C prior to transport.
ED Attending Note
-
Portions of this chart may have been created with voice recognition software.� Occasional wrong word or��sound alike� substitutions may have occurred due to the inherent limitations of voice recognition software.
Discharge Plan
Departure
Patient Disposition: Psych Facility
Date of Disposition: 08/06/24
Time of Disposition: 19:48
Discharge Problem:
Suicidal ideations
Prescriptions:
No Action
insulin glargine [Lantus Solostar U-100 Insulin] 300 UNITS/3 ML insulin pen
25 units SC HS
insulin aspart U-100 [Novolog FlexPen U-100 Insulin] 100 unit/mL (3 mL) Insulin Pen
8 unit SC AC 30 Days Qty: 7.2 0RF
benztropine 0.5 mg tablet
0.5 mg PO BID
metformin 850 mg tablet
850 mg PO BID
risperidone 3 mg tablet
3 mg PO HS
risperidone 2 mg tablet
2 mg PO DAILY
lithium carbonate 600 mg capsule
1,200 mg PO HS
Referrals:
UNKNOWN - PT NOT,INTERVIEWE [Family Provider] -
Interventions
Interventions:
*Risk Screen - Suicide Last Done: 08/06/24 15:43
*General Assessment Last Done: 08/06/24 17:38
*Neglect/Abuse Screening Last Done: 08/06/24 15:45
*ED COVID-19 Vaccine History Last Done: 08/06/24 17:38
ED-Psychological Assessment Last Done: 08/06/24 16:09
Discharge Date and Time
Print Language: TUVALUAN
[2024-08-06 16:43] LABS: % Basophils 1.1 % (0-2); % Eosinophils 6.2 % (0-6); % Immature Granulocytes 0.3 % (0-0.5); % Lymphocytes 24.7 % (20.5-51.1); % Monocytes 6.4 % (1.7-9.3); % Neutrophils 61.3 % (42.2-75.2); Absolute Basophils 0.1 10^3/uL (0-0.2); Absolute Eosinophils 0.7 10^3/uL (0-0.7); Absolute Lymphocytes 2.6 10^3/uL (1.2-3.4); Absolute Monocytes 0.7 10^3/uL (0.1-0.6); Absolute Neutrophils 6.6 10^3/uL (1.4-6.5); Hematocrit 36.3 % (39.0-52.0); Hemoglobin 12.2 g/dL (13.0-18.0); Mean Corp Hgb Conc. 33.6 g/dL (33.0-37.0); Mean Corpuscular Hgb 29.3 pg (27.0-31.0); Mean Corpuscular Volume 87.1 fL (80.0-94.0); Mean Platelet Volume 12.6 fL (7.4-10.4); Nucleated Red Blood Cells % 0 % (-); Platelet Count 150 10^3/uL (130-400); Red Blood Cell Count 4.17 10^6/uL (4.70-6.10); Red Cell Dist. Width 13.8 % (11.5-14.5); White Blood Cell Count 10.7 10^3/uL (4.8-10.8)
[2024-08-06 16:59] LABS: ALT (SGPT) 14 U/L (0-50); AST (SGOT) 15 U/L (17-59); Albumin 4.2 g/dl (3.5-5.0); Alkaline Phosphatase 63 U/L (38-126); Blood Urea Nitrogen 7 mg/dl (9-20); Calcium 9.5 mg/dl (8.4-10.2); Carbon Dioxide 26 mmol/L (22-30); Chloride 104 mmol/L (98-107); Glucose 115 mg/dl (70-99); Lithium 0.4 mmol/L (0.6-1.2); Potassium 4.1 mmol/L (3.5-5.1); Sodium 140 mmol/L (135-145); Total Bilirubin 0.3 mg/dl (0.2-1.3); Total Protein 6.7 g/dl (6.3-8.2); eGFR > 60.00
[2024-08-06 17:00] LABS: Amphetamines Negative (Negative); Barbiturates Negative (Negative); Benzodiazepines Negative (Negative); Buprenorphine Negative (Negative); Cocaine Negative (Negative); Marijuana Negative (Negative); Methadone Negative (Negative); Methamphetamines Negative (Negative); Opiates Negative (Negative); Phencyclidine Negative (Negative); Tricyclic Antidepressants Negative (Negative)
[2024-08-06 17:01] LABS: Alcohol None Detected
[2024-08-06 18:56] LABS: Glucose - Point of Care 116 mg/dl (70-99)
[2024-08-06] MEDS: NOVOLOG vial 8 UNITS SC (19:25)
[2024-08-06 22:23] VITALS: BP 128/83
[2024-08-06] MEDS: LANTUS 0.25 UNITS SC (22:29)
[2024-08-06 22:31] LABS: Glucose - Point of Care 113 mg/dl (70-99)
[2024-08-06] MEDS: ESKALITH REGULAR RELEASE 600 MG PO (22:58)
[2024-08-06] MEDS: COGENTIN 0.5 MG PO (22:58)
[2024-08-06] MEDS: GLUCOPHAGE 1000 MG PO (22:58)
[2024-08-06] MEDS: RISPERDAL 3 MG PO (22:59)
== END 2024-08-06 23:15 ==
LOC: EMR 15:43
PROVIDERS: Physician Assistant; EMERGENCY PHYSICIAN Student in an Organized Health Care Education/Training Program
DX: R45.851 Suicidal ideations (principal); F20.9 Schizophrenia, unspecified; E11.9 Type 2 diabetes mellitus without complications
CPT/HCPCS: 99285; 96372; 80053; 80178; 80306; 82077; 82962; 85025

== ENCOUNTER 2024-11-15 12:17 | Emergency (ER) | payer OTHER, SELFPAY ==
[2024-11-15 12:26] VITALS: BP 140/87
[2024-11-15 12:32] LABS: Glucose - Point of Care 86 mg/dl (70-99)
--- NOTE | 2024-11-15 12:44 | ED.GENMED ---
History of Present Illness
General
Chief Complaint: Crisis Evaluation
Source: patient and other (Staff from [facility] program with patient)
Exam Limitations: none
Time Seen by Provider: 11/15/24 12:30
Nursing documentation reviewed up to this point in time: agreed with
History of Present Illness
History of Present Illness:
43-year-old male with history of ADHD, bipolar, depression, schizophrenia, IDDM is here with staff member for intermittently refusing to take his Insulin for the past month. Pt states he's here for 'suicidal thoughts' but states he does not have a
plan. Pt is in [facility] program in [place] with a roommate.
Pt has history of refusing Insulin, he states he only refuses it if his blood sugar is below 200. He checks his blood sugars independently but does it in front of the staff.
Per staff with pt: His doctor ordered staff to give Insulin QID regardless of BS, just be sure to eat after getting it.
He gets Insulin QID. Staff member has a Record of Insulin administrations from 09/27/24 to now showing he refused one dose daily from 10/30 to 11/03 and refused one dose yesterday but took it today.
Past History
Past History
ED Past Medical History: HTN, Hypercholesterolemia, NIDDM, Psychiatric (Bipolar, ADHD, schizophrenia) and Other (Thrombocytopenia, fatty liver)
ED Past Surgical History: Appendectomy
Social History
Tobacco: Non-smoker
Alcohol: None
Drug: Former user (Cocaine/Meth)
Personal:
Living: with family
Family History
Family History: Negative Diabetes
Review of Systems
Review of Systems
Allergies reviewed?: Yes
All Other Systems: ROS reviewed and negative except as documented in HPI and ROS
Constitutional: Denies fever or fatigue
Respiratory: Denies trouble breathing
Cardiac: Denies chest pain
ABD/GI: Denies abdominal pain, nausea, vomiting, diarrhea, constipated or anorexia
: Denies dysuria, frequency or difficulty voiding
Musculoskeletal: Reports no symptoms
Skin: Reports no symptoms
Neurological: Reports no symptoms
Psychiatric: Reports suicidal
Phy Exam
Physical Exam
Physical Exam:
GENERAL: No acute distress. A&Ox3.
CONSTITUTIONAL: Afebrile.
EYES: clear, conjunctivae normal
ENMT: moist mucus membranes, Pharynx nl
RESPIRATORY: Regular respirations, nonlabored, lungs clear.
CARDIOVASCULAR: Regular rate and rhythm, HR 140 standing, no murmurs, no rubs.
GI: Soft, nontender, normal BS
MUSCULOSKELETAL: Moves with ease. Well perfused.
SKIN: Warm, dry, pink
PSYCH: Normal mood and affect. Well kept, interactive and appropriate
NEUROLOGIC: Awake, alert and oriented. No focal neurological deficits
Course
Orders/Labs/Results
Orders:
Orders
11/15/24 12:19
1:1 Observation - Suicide/ Violent Behavior As Directed
Crisis Consult Urgent
Reason for Consult: SI
Comment: [facility] resident
11/15/24 12:42
Electrocardiogram (*1) Urgent
Reason for Study: Tachycardia
EKG- Treatment ONCE
11/15/24 12:58
0.9% Sodium Chloride 1000 ml [Nss] 1,000 ml IV BOLUS
11/15/24 13:01
Acetaminophen Urgent
Alcohol Urgent
Complete Blood Count/With Diff Urgent
Comprehensive Metabolic Panel Urgent
Hemoglobin A1c [Glycohemoglobin (HgbA1c)] Urgent
Salicylate Urgent
Abnormal Lab Results
11/15/24 11/15/24 11/15/24
13:01 14:26 15:22
RBC 4.62 L 10^6/uL
(4.70-6.10)
MCHC 32.4 L g/dL
(33.0-37.0)
Plt Count 128 L 10^3/uL
(130-400)
MPV 13.4 H fL
(7.4-10.4)
Absolute Monos (auto) 0.8 H 10^3/uL
(0.1-0.6)
Creatinine 0.5 L mg/dL
(0.7-1.3)
Glucose 102 H mg/dl
(70-99)
AST 16 L U/L
(17-59)
Salicylates < 1.0 L mg/dl
(2.0-20.0)
Acetaminophen < 10 L ug/ml
(10-30)
POC Glucose 60 L mg/dl 186 H mg/dl
(70-99) (70-99)
11/15/24 13:01
11/15/24 13:01
Vital Signs
Initial and Last Documented VS:
Initial Vital Signs
Temp Pulse Resp BP Pulse Ox
98.7 F 128 18 140/87 96
11/15/24 12:26 11/15/24 12:26 11/15/24 12:26 11/15/24 12:26 11/15/24 12:26
Last Documented Vital Signs
Temp Pulse Resp BP Pulse Ox
98.7 F 100 16 148/77 96
11/15/24 12:26 11/15/24 15:31 11/15/24 15:31 11/15/24 15:00 11/15/24 15:15
High Voltage Electrician consulted with Physician
High Voltage Electrician consulted with physician?: Yes
Name of Physician Consulted: Guevara
MDM/Problems Addressed
Differential Diagnosis Includes:
SI, anxiety
Diabetes with questionable med compliance
MDM/Problems Addressed:
43-year-old male with history of ADHD, bipolar, depression, schizophrenia, IDDM is here with staff member for intermittently refusing to take his Insulin for the past month. Pt states he's here for 'suicidal thoughts' but states he does not have a
plan. Pt is in [facility] program in [facility]. with a roommate.
Pt has history of refusing Insulin, he states he only refuses it if his blood sugar is below 200. He checks his blood sugars independently but does it in front of the staff.
Per staff with pt: His doctor ordered staff to give Insulin QID regardless of BS, just be sure to eat after getting it.
He gets Insulin QID. Staff member has a Record of Insulin administrations from 09/27/24 to now showing he refused one dose daily from 10/30 to 11/03 and refused one dose yesterday but took it today.
Afebrile. NAD, Calm cooperative. Giving a good history. Staff member at bedside, no need for 1:1 at this time
Monitor showing HR 120 sinus rhythm
3:00 PM:
Patient evaluated by crisis who has released him back to his [facility]. States he has all the resources he needs.
CBC, CMP with no clinically significant abnormality. Glucose 102.
Work up basically negative.
remains tachycardic 102 at rest, 118 with standing, maintains his BP, asymptomatic. No infectious signs
Case discussed with Dr. Waterman who agrees pt stable for discharge
Pt remains calm, cooperative.
Pt has appointment with PCP Dr. Hogan tomorrow.
*Critical Care Note
Total Time (30-74mins, 75-104mins- exclusive of procedures): Not Applicable
ED Attending Note
-
Portions of this chart may have been created with voice recognition software.� Occasional wrong word or��sound alike� substitutions may have occurred due to the inherent limitations of voice recognition software.
Discharge Plan
Departure
Patient Disposition: Home (Routine Discharge)
Date of Disposition: 11/15/24
Time of Disposition: 15:27
Patient with high blood pressure during this ER visit?: No
Condition: Good
Discharge Problem:
Diabetes
Instructions: Type 2 diabetes - Discharge instructions
Prescriptions:
No Action
insulin glargine [Lantus Solostar U-100 Insulin] 300 UNITS/3 ML insulin pen
25 units SC HS
insulin aspart U-100 [Novolog FlexPen U-100 Insulin] 100 unit/mL (3 mL) Insulin Pen
8 unit SC AC 30 Days Qty: 7.2 0RF
benztropine 0.5 mg tablet
0.5 mg PO BID
metformin 850 mg tablet
1,000 mg PO BID
risperidone 3 mg tablet
3 mg PO HS
risperidone 2 mg tablet
2 mg PO DAILY
lithium carbonate 600 mg capsule
600 mg PO HS
Referrals:
UNKNOWN - PT DOES,NOT KNOW [Family Provider] -
Activity Restrictions/Additional Instructions:
Please contact your doctor and discuss changing your order for insulin 4 times a day to a sliding scale based on your blood sugar reading
Your workup here today shows nothing worrisome.
Interventions
Interventions:
*Risk Screen - Suicide Last Done: 11/15/24 12:18
*General Assessment Last Done: 11/15/24 12:27
*Neglect/Abuse Screening Last Done: 11/15/24 12:27
ED- Fall Risk Assessment Last Done: 11/15/24 15:27
*ED COVID-19 Vaccine History Last Done: 11/15/24 13:04
*Nursing Disposition Last Done: 11/15/24 15:33
ED-Psychological Assessment Last Done: 11/15/24 14:32
Discharge Date and Time
Discharge Date/Time: 11/15/24 15:33
Print Language: HUNGARIAN
[2024-11-15 12:52] VITALS: BP 139/81
[2024-11-15 13:00] VITALS: BP 130/80
[2024-11-15 13:03] VITALS: BMI 32.0
[2024-11-15] MEDS: NSS 1000 IV (13:08)
[2024-11-15 13:09] VITALS: BP 130/80; BP 137/79; BP 148/86; PULSE 116; PULSE 125; PULSE 131
[2024-11-15 13:24] LABS: Hemoglobin 13.6 g/dL (13.0-18.0); Mean Corp Hgb Conc. 32.4 g/dL (33.0-37.0); Mean Corpuscular Hgb 29.4 pg (27.0-31.0); Mean Corpuscular Volume 90.9 fL (80.0-94.0); Red Blood Cell Count 4.62 10^6/uL (4.70-6.10); Red Cell Dist. Width 13.3 % (11.5-14.5); White Blood Cell Count 10.4 10^3/uL (4.8-10.8)
[2024-11-15 13:31] LABS: ALT (SGPT) 15 U/L (0-50); AST (SGOT) 16 U/L (17-59); Albumin 4.2 g/dl (3.5-5.0); Alkaline Phosphatase 88 U/L (38-126); Blood Urea Nitrogen 10 mg/dl (9-20); Calcium 9.4 mg/dl (8.4-10.2); Carbon Dioxide 25 mmol/L (22-30); Chloride 102 mmol/L (98-107); Estimated Creatinine Clearance > 125 ml/min; Glucose 102 mg/dl (70-99); Potassium 3.9 mmol/L (3.5-5.1); Sodium 138 mmol/L (135-145); Total Bilirubin 0.2 mg/dl (0.2-1.3); Total Protein 6.9 g/dl (6.3-8.2); eGFR > 60.00
[2024-11-15 13:39] LABS: % Basophils 0.9 % (0-2); % Eosinophils 5.2 % (0-6); % Immature Granulocytes 0.4 % (0-0.5); % Lymphocytes 22.7 % (20.5-51.1); % Monocytes 7.8 % (1.7-9.3); Absolute Basophils 0.1 10^3/uL (0-0.2); Absolute Eosinophils 0.5 10^3/uL (0-0.7); Absolute Lymphocytes 2.4 10^3/uL (1.2-3.4); Absolute Monocytes 0.8 10^3/uL (0.1-0.6); Absolute Neutrophils 6.5 10^3/uL (1.4-6.5); Mean Platelet Volume 13.4 fL (7.4-10.4); Nucleated Red Blood Cells % 0 % (-); Platelet Count 128 10^3/uL (130-400)
[2024-11-15 13:49] LABS: Acetaminophen < 10 ug/ml (10-30); Salicylate < 1.0 mg/dl (2.0-20.0)
[2024-11-15 13:50] LABS: Alcohol None Detected
[2024-11-15 14:28] LABS: Glucose - Point of Care 60 mg/dl (70-99)
[2024-11-15 15:00] VITALS: BP 148/77
[2024-11-15 15:24] LABS: Glucose - Point of Care 186 mg/dl (70-99)
[2024-11-16 10:25] LABS: Glycohemoglobin (HgbA1c) 8.5 % (4.0-5.6)
== END 2024-11-15 15:33 ==
LOC: EMR 12:17
PROVIDERS: Registered Nurse; EMERGENCY PHYSICIAN Emergency Medicine
DX: R45.851 Suicidal ideations (principal); E11.9 Type 2 diabetes mellitus without complications; F31.9 Bipolar disorder, unspecified; F20.9 Schizophrenia, unspecified; I10 Essential (primary) hypertension; E78.00 Pure hypercholesterolemia, unspecified; Z79.4 Long term (current) use of insulin
CPT/HCPCS: 99285; 80053; 80143; 80179; 82077; 82962; 83036; 85025; 93005

== ENCOUNTER 2024-12-17 18:44 | Emergency (ER) | payer OTHER, SELFPAY ==
[2024-12-17 18:47] VITALS: BMI 33.4
[2024-12-17 18:48] VITALS: BP 125/66
[2024-12-17 18:50] LABS: Glucose - Point of Care 581 mg/dl (70-99)
[2024-12-17 19:21] LABS: % Eosinophils 7.2 % (0-6); % Immature Granulocytes 0.6 % (0-0.5); % Lymphocytes 25.4 % (20.5-51.1); % Monocytes 8.8 % (1.7-9.3); Absolute Basophils 0.1 10^3/uL (0-0.2); Absolute Eosinophils 0.6 10^3/uL (0-0.7); Absolute Immature Granulocytes 0.1 10^3/uL (0-0.05); Absolute Lymphocytes 2.2 10^3/uL (1.2-3.4); Absolute Monocytes 0.8 10^3/uL (0.1-0.6); Hematocrit 42.1 % (39.0-52.0); Hemoglobin 13.8 g/dL (13.0-18.0); Mean Corp Hgb Conc. 32.8 g/dL (33.0-37.0); Mean Corpuscular Volume 91.5 fL (80.0-94.0); Mean Platelet Volume 13.7 fL (7.4-10.4); Nucleated Red Blood Cells % 0 % (-); Platelet Count 135 10^3/uL (130-400); Red Cell Dist. Width 13.7 % (11.5-14.5); White Blood Cell Count 8.8 10^3/uL (4.8-10.8)
[2024-12-17 19:25] LABS: ALT (SGPT) 13 U/L (0-50); AST (SGOT) 12 U/L (17-59); Albumin 4.3 g/dl (3.5-5.0); Alkaline Phosphatase 88 U/L (38-126); B-Hydroxybutyrate 0.06 mmol/L (0.02-0.27); Blood Urea Nitrogen 5 mg/dl (9-20); Calcium 9.2 mg/dl (8.4-10.2); Carbon Dioxide 27 mmol/L (22-30); Chloride 96 mmol/L (98-107); Estimated Creatinine Clearance > 125 ml/min; Glucose 553 mg/dl (70-99); Potassium 4.1 mmol/L (3.5-5.1); Sodium 132 mmol/L (135-145); Total Bilirubin 0.5 mg/dl (0.2-1.3); eGFR > 60.00
[2024-12-17] MEDS: NOVOLOG vial 16 UNITS SC (20:48)
[2024-12-17] MEDS: NSS 1000 IV (20:48)
[2024-12-17 20:52] LABS: Glucose - Point of Care 371 mg/dl (70-99)
[2024-12-17] MEDS: LANTUS 0.5 UNITS SC (21:18)
--- NOTE | 2024-12-17 21:55 | ED.GENMED ---
History of Present Illness
General
Chief Complaint: Blood Sugar Problem
Source: patient and ambulance crew
Exam Limitations: none
Time Seen by Provider: 12/17/24 19:06
History of Present Illness
History of Present Illness:
Patient is a 43-year-old male with past medical history of schizophrenia, insulin-dependent diabetes, who presents to the emergency department from his [facility] for evaluation of an elevated blood sugar reading at his [facility] earlier this
evening. Patient reports that he missed his NovoLog which he was supposed to take at 12:00 noon today. He reports that he then missed his evening NovoLog that he was supposed to take at 4:30pm. Patient reports he is also due for his evening
Lantus and has not yet taken it. Patient admits that his blood sugars usually run high and are typically in the 200s to 300 range. Patient denies any symptom such as fevers, chills, chest pain, shortness of breath, abdominal pain, nausea,
vomiting, change in his bowel habits.
Past History
Past History
ED Past Medical History: HTN, Hypercholesterolemia, NIDDM, Psychiatric (Bipolar, ADHD, schizophrenia) and Other (Thrombocytopenia, fatty liver)
ED Past Surgical History: Appendectomy
Social History
Tobacco: Non-smoker
Alcohol: None
Drug: Former user (Cocaine/Meth)
Personal:
Living: with family
Family History
Family History: Negative Diabetes
Review of Systems
Review of Systems
Allergies reviewed?: Yes
All Other Systems: ROS reviewed and negative except as documented in HPI and ROS
Constitutional: Reports no symptoms
EENT: Reports no symptoms
Respiratory: Reports no symptoms
Cardiac: Reports no symptoms
ABD/GI: Reports no symptoms
: Reports no symptoms
Musculoskeletal: Reports no symptoms
Skin: Reports no symptoms
Neurological: Reports no symptoms
Endocrine: Reports no symptoms
Hematologic/Lymphatic: Reports no symptoms
Psychiatric: Reports no symptoms
Phy Exam
General Physical Exam
General Presentation: well appearing and no apparent distress
General Skin: warm and dry
General Habitus: normal
General Mental: alert
General Hydration: appears well hydrated
ENT Exam
ENT Exam: EOMI, pharynx normal, neck supple and normocephalic
Eye Exam
Eye Exam: PERRL, cornea clear and conjunctiva normal
Cardiovascular Exam
Cardiovascular Exam: regular rate/rhythm, no edema, no murmur and normal peripheral pulses
Pulmonary Exam
Pulmonary Exam: lungs clear, no respiratory distress, no rales, no crackles, no rhonchi, no stridor, no wheezing and no cough
Gastrointestinal Exam
Gastrointestinal Exam: normal bowel sounds, non tender, soft, no organomegaly, no pulsatile mass and non distended
Neurological Exam
Neurological Exam: alert, oriented x3, no motor deficits and speech normal
Musculoskeletal Exam
Musculoskeletal Exam: full ROM and no edema
Skin Exam
Skin Exam: normal color, warm/dry, no rash and no petechia
Psychiatric Exam
Psychiatric Exam: normal mood/affect
Course
Orders/Labs/Results
Orders:
Orders
12/17/24 18:55
BHB [B-Hydroxybutyrate] Urgent
Complete Blood Count/With Diff Urgent
Comprehensive Metabolic Panel Urgent
12/17/24 19:28
0.9% Sodium Chloride 1000 ml [Nss] 1,000 ml IV BOLUS
12/17/24 20:23
Insulin Aspart [NOVOLOG vial] 16 units SC NOW STA
12/17/24 21:00
Insulin Glargine Lantus [Lantus] 50 units Subcutaneous Insulin Syringe [Syringe-Insulin] 0 unit SC ONCE
Abnormal Lab Results
12/17/24 12/17/24 12/17/24
18:49 18:55 20:51
RBC 4.60 L 10^6/uL
(4.70-6.10)
MCHC 32.8 L g/dL
(33.0-37.0)
MPV 13.7 H fL
(7.4-10.4)
Abs Immat Gran (auto) 0.1 H 10^3/uL
(0-0.05)
Absolute Monos (auto) 0.8 H 10^3/uL
(0.1-0.6)
Immature Gran % 0.6 H %
(0-0.5)
Eosinophils % 7.2 H %
(0-6)
Sodium 132 L mmol/L
(135-145)
Chloride 96 L mmol/L
(98-107)
BUN 5 L mg/dl
(9-20)
Creatinine 0.6 L mg/dL
(0.7-1.3)
Glucose 553 H* mg/dl
(70-99)
AST 12 L U/L
(17-59)
POC Glucose 581 H* mg/dl 371 H mg/dl
(70-99) (70-99)
12/17/24 18:55
12/17/24 18:55
Vital Signs
Initial and Last Documented VS:
Initial Vital Signs
Temp Pulse Resp BP Pulse Ox
98.4 F 105 22 125/66 97
12/17/24 18:48 12/17/24 18:48 12/17/24 18:48 12/17/24 18:48 12/17/24 18:48
Last Documented Vital Signs
Temp Pulse Resp BP Pulse Ox
98.4 F 100 13 125/66 97
12/17/24 18:48 12/17/24 18:55 12/17/24 18:55 12/17/24 18:48 12/17/24 18:48
*Critical Care Note
Total Time (30-74mins, 75-104mins- exclusive of procedures): Not Applicable
Update Note
Update Note:
43-year-old male with history of insulin-dependent diabetes presents to the emergency department for an elevated blood sugar reading at his [facility] earlier today. Patient admits that he did not take his short acting insulin at lunchtime or with
dinner this evening. Patient denies any symptoms. On arrival, patient's vital signs are stable, he is afebrile. On exam, patient is very well-appearing, he is in no acute distress, he has a normal cardiopulmonary exam, he has a benign abdomen.
Labs were obtained and are notable for an elevated blood sugar of 553 without evidence of DKA. Patient received 1 L of fluids with improvement of his blood sugar to 371. Patient was then given his NovoLog as well as his Lantus. Patient is safe
for discharge back to his [facility], he was encouraged to take his insulin exactly as prescribed. He was also educated on return precautions, he expressed understanding of the plan and agreed.
ED Attending Note
-
Portions of this chart may have been created with voice recognition software.� Occasional wrong word or��sound alike� substitutions may have occurred due to the inherent limitations of voice recognition software.
Discharge Plan
Departure
Patient Disposition: Home (Routine Discharge)
Date of Disposition: 12/17/24
Time of Disposition: 21:08
Patient with high blood pressure during this ER visit?: No
Condition: Good
Covid-19: Not Applicable
Discharge Problem:
Hyperglycemia
Instructions: High blood sugar in adults - ED discharge instructions
Prescriptions:
No Action
insulin glargine [Lantus Solostar U-100 Insulin] 300 UNITS/3 ML insulin pen
50 units SC HS
benztropine 0.5 mg tablet
0.5 mg PO BID
risperidone 3 mg tablet
3 mg PO BID
lithium carbonate 600 mg capsule
1,200 mg PO HS
haloperidol 0.5 mg Tablet
0.5 mg PO BID
acetaminophen [Tylenol] 325 mg Tablet
650 mg PO Q4HPRN PRN (Reason: mild pain)
benztropine 0.5 mg Tablet
0.5 mg PO Q4HPRN PRN (Reason: agitation)
trazodone 100 mg Tablet
100 mg PO HSPRN PRN (Reason: sleep)
insulin aspart U-100 [Novolog U-100 Insulin aspart] 100 unit/mL Solution
16 unit SC BID@1200,1600
metformin 1,000 mg Tablet
1,000 mg PO BID
nicotine (polacrilex) 2 mg Lozenge
2 mg BUCCAL Q2HPRN PRN (Reason: nicotine)
Congestion Relief (ibuprof-PE) 200-10 mg Tablet
1 tab PO Q4HPRN PRN (Reason: congestion)
insulin aspart U-100 [Novolog FlexPen U-100 Insulin] 100 unit/mL (3 mL) insulin pen
12 unit SC DAILY
Referrals:
Pavel Hogan I., DO [Family Provider] -
Activity Restrictions/Additional Instructions:
You were seen in the emergency department for evaluation of elevated blood sugar levels. While you were in the emergency department you had blood work performed which showed no other abnormalities besides the elevated blood sugar. You received IV
fluids and insulin with improvement in your blood sugar. We feel it is safe for you to be discharged to home. Please continue to drink plenty of water and take your insulin exactly as prescribed. Please return to the emergency department if you
develop dizziness, lightheadedness, headache, chest pain, shortness of breath, abdominal pain, persistent vomiting, or for any other worsening or concerning symptoms.
Interventions
Interventions:
*Risk Screen - Suicide Last Done: 12/17/24 18:48
*General Assessment Last Done: 12/17/24 18:48
*Neglect/Abuse Screening Last Done: 12/17/24 18:48
ED- Fall Risk Assessment Last Done: 12/17/24 18:54
*ED COVID-19 Vaccine History Last Done: 12/17/24 18:48
*Nursing Disposition Last Done: 12/17/24 21:26
ED- Neurological Assessment Last Done: 12/17/24 18:54
Discharge Date and Time
Discharge Date/Time: 12/17/24 21:26
Print Language: KAZAKH
== END 2024-12-17 21:26 | disposition home or self-care (01) ==
LOC: EMR 18:44
PROVIDERS: EMERGENCY PHYSICIAN Student in an Organized Health Care Education/Training Program; FAMILY PHYSICIAN Internal Medicine
DX: E11.65 Type 2 diabetes mellitus with hyperglycemia (principal); T38.3X6A Underdosing of insulin and oral hypoglycemic [antidiabetic] drugs, initial encounter; Z91.148 Patient's other noncompliance with medication regimen for other reason; Y92.89 Other specified places as the place of occurrence of the external cause; F20.9 Schizophrenia, unspecified; Z79.4 Long term (current) use of insulin; I10 Essential (primary) hypertension; F31.9 Bipolar disorder, unspecified; E78.00 Pure hypercholesterolemia, unspecified; F90.9 Attention-deficit hyperactivity disorder, unspecified type; K76.0 Fatty (change of) liver, not elsewhere classified; F14.11 Cocaine abuse, in remission; F15.11 Other stimulant abuse, in remission
CPT/HCPCS: 99284; 96360; 96372 ×2; 80053; 82010; 82962; 85025

== ENCOUNTER 2024-12-25 20:13 | Emergency (ER) | payer OTHER, SELFPAY ==
[2024-12-25 20:14] VITALS: BP 149/90
[2024-12-25 20:23] LABS: Glucose - Point of Care 319 mg/dl (70-99)
[2024-12-25 20:45] LABS: % Basophils 0.9 % (0-2); % Eosinophils 5.7 % (0-6); % Immature Granulocytes 0.6 % (0-0.5); % Lymphocytes 23.2 % (20.5-51.1); % Monocytes 9.2 % (1.7-9.3); % Neutrophils 60.4 % (42.2-75.2); Absolute Basophils 0.1 10^3/uL (0-0.2); Absolute Eosinophils 0.6 10^3/uL (0-0.7); Absolute Immature Granulocytes 0.1 10^3/uL (0-0.05); Absolute Lymphocytes 2.4 10^3/uL (1.2-3.4); Absolute Neutrophils 6.3 10^3/uL (1.4-6.5); Hematocrit 39.7 % (39.0-52.0); Mean Corp Hgb Conc. 32.7 g/dL (33.0-37.0); Mean Corpuscular Hgb 29.8 pg (27.0-31.0); Mean Corpuscular Volume 91.1 fL (80.0-94.0); Mean Platelet Volume 13.4 fL (7.4-10.4); Nucleated Red Blood Cells % 0 % (-); Platelet Count 158 10^3/uL (130-400); Red Blood Cell Count 4.36 10^6/uL (4.70-6.10); Red Cell Dist. Width 13.8 % (11.5-14.5); White Blood Cell Count 10.4 10^3/uL (4.8-10.8)
--- NOTE | 2024-12-25 20:52 | ED.GENMED ---
History of Present Illness
General
Chief Complaint: Crisis Evaluation
Source: patient
Exam Limitations: none
Time Seen by Provider: 12/25/24 20:47
History of Present Illness
History of Present Illness:
43-year-old male states he has suicidal ideation. His thought was to take his regular dose of insulin or extra insulin and not eat. He did not however do this. He states he is frequently suicidal. And he still feels suicidal although he has no
other planned in this. He medically feels at baseline.
Past History
Past History
ED Past Medical History: HTN, Hypercholesterolemia, NIDDM, Psychiatric (Bipolar, ADHD, schizophrenia) and Other (Thrombocytopenia, fatty liver)
ED Past Surgical History: Appendectomy
Social History
Tobacco: Non-smoker
Alcohol: None
Drug: Former user (Cocaine/Meth)
Personal:
Living: with family
Family History
Family History: Negative Diabetes
Review of Systems
Review of Systems
All Other Systems: Not applicable
Constitutional: Denies fever or chills
Respiratory: Reports no symptoms
Cardiac: Reports no symptoms
ABD/GI: Reports no symptoms
Phy Exam
Physical Exam
Physical Exam:
GENERAL: Alert and oriented in no apparent distress. Standing in the room in no distress. Cooperative
EYE: Orbits normal.
NECK: Supple.
CARDIAC: Regular rate and rhythm without any obvious murmurs.
LUNGS: Clear breath sounds,normal
ABDOMEN: Soft, without focal tenderness or distention. Periumbilical hernia easily reducible
NEUROLOGICAL: Alert and oriented , grossly non-focal
SKIN: Warm and dry. No rash
MUSCULOSKELETAL: No edema,no deformity.Good color
PSYCH: Flat affect
Course
Orders/Labs/Results
Orders:
Orders
12/25/24 20:19
1:1 Observation - Suicide/ Violent Behavior As Directed
Crisis Consult Urgent
Reason for Consult: si
12/25/24 20:31
Complete Blood Count/With Diff Urgent
Comprehensive Metabolic Panel Urgent
12/25/24 20:40
Drug Screen, Urine [Urine Drug Abuse Screen] Stat
Date Specimen was Collected: 12/25/24
Time Specimen was Collected: 20:38
Abnormal Lab Results
12/25/24 12/25/24 12/25/24
20:21 20:31 22:08
RBC 4.36 L 10^6/uL
(4.70-6.10)
MCHC 32.7 L g/dL
(33.0-37.0)
MPV 13.4 H fL
(7.4-10.4)
Abs Immat Gran (auto) 0.1 H 10^3/uL
(0-0.05)
Absolute Monos (auto) 1.0 H 10^3/uL
(0.1-0.6)
Immature Gran % 0.6 H %
(0-0.5)
Sodium 132 L mmol/L
(135-145)
Creatinine 0.5 L mg/dL
(0.7-1.3)
Glucose 315 H mg/dl
(70-99)
AST 13 L U/L
(17-59)
POC Glucose 319 H mg/dl 199 H mg/dl
(70-99) (70-99)
12/25/24
23:15
RBC
MCHC
MPV
Abs Immat Gran (auto)
Absolute Monos (auto)
Immature Gran %
Sodium
Creatinine
Glucose
AST
POC Glucose 143 H mg/dl
(70-99)
12/25/24 20:31
12/25/24 20:31
Vital Signs
Initial and Last Documented VS:
Initial Vital Signs
Temp Pulse Resp BP Pulse Ox
97.9 F 108 20 149/90 98
12/25/24 20:14 12/25/24 20:14 12/25/24 20:14 12/25/24 20:14 12/25/24 20:14
Last Documented Vital Signs
Temp Pulse Resp BP Pulse Ox
97.9 F 108 20 149/90 98
12/25/24 20:14 12/25/24 20:14 12/25/24 20:14 12/25/24 20:14 12/25/24 20:14
MDM/Problems Addressed
Differential Diagnosis Includes:
Patient medically stable. Nothing to support an acute issue. Blood sugar pending. Will have crisis evaluate. Cooperative at this time
*Pulse Oximetry
Patient hypoxic: no
*Critical Care Note
Total Time (30-74mins, 75-104mins- exclusive of procedures): Not Applicable
Data Reviewed
Review of Other/Old Records Reveals: Labs, Records and Progress Notes
Update Note
Update Note:
Patient took his insulin this evening. He is medically stable
ED Attending Note
-
Portions of this chart may have been created with voice recognition software.� Occasional wrong word or��sound alike� substitutions may have occurred due to the inherent limitations of voice recognition software.
Discharge Plan
Departure
Patient Disposition: Psych Facility
Date of Disposition: 12/25/24
Time of Disposition: 22:58
Discharge Problem:
Depression/suicidal ideation, History of diabetes
Prescriptions:
No Action
insulin glargine [Lantus Solostar U-100 Insulin] 300 UNITS/3 ML insulin pen
50 units SC HS
benztropine 0.5 mg tablet
0.5 mg PO BID
risperidone 3 mg tablet
3 mg PO BID
lithium carbonate 600 mg capsule
1,200 mg PO HS
haloperidol 0.5 mg Tablet
0.5 mg PO BID
acetaminophen [Tylenol] 325 mg Tablet
650 mg PO Q4HPRN PRN (Reason: mild pain)
benztropine 0.5 mg Tablet
0.5 mg PO Q4HPRN PRN (Reason: agitation)
trazodone 100 mg Tablet
100 mg PO HSPRN PRN (Reason: sleep)
insulin aspart U-100 [Novolog U-100 Insulin aspart] 100 unit/mL Solution
16 unit SC BID@1200,1600
metformin 1,000 mg Tablet
1,000 mg PO BID
nicotine (polacrilex) 2 mg Lozenge
2 mg BUCCAL Q2HPRN PRN (Reason: nicotine)
Congestion Relief (ibuprof-PE) 200-10 mg Tablet
1 tab PO Q4HPRN PRN (Reason: congestion)
insulin aspart U-100 [Novolog FlexPen U-100 Insulin] 100 unit/mL (3 mL) insulin pen
12 unit SC DAILY
Referrals:
Pavel Hogan I., [Family Provider] -
Interventions
Interventions:
*Risk Screen - Suicide Last Done: 12/25/24 20:14
*General Assessment Last Done: 12/25/24 20:14
*Neglect/Abuse Screening Last Done: 12/25/24 20:14
Discharge Date and Time
Print Language: POLISH
[2024-12-25 20:57] LABS: Amphetamines Negative (Negative); Barbiturates Negative (Negative); Benzodiazepines Negative (Negative); Buprenorphine Negative (Negative); Cocaine Negative (Negative); Marijuana Negative (Negative); Methadone Negative (Negative); Methamphetamines Negative (Negative); Opiates Negative (Negative); Phencyclidine Negative (Negative); Tricyclic Antidepressants Negative (Negative)
[2024-12-25 21:00] LABS: ALT (SGPT) 14 U/L (0-50); AST (SGOT) 13 U/L (17-59); Albumin 4.5 g/dl (3.5-5.0); Alkaline Phosphatase 89 U/L (38-126); Blood Urea Nitrogen 9 mg/dl (9-20); Calcium 9.4 mg/dl (8.4-10.2); Carbon Dioxide 22 mmol/L (22-30); Chloride 98 mmol/L (98-107); Glucose 315 mg/dl (70-99); Potassium 4.1 mmol/L (3.5-5.1); Sodium 132 mmol/L (135-145); Total Bilirubin 0.6 mg/dl (0.2-1.3); Total Protein 6.9 g/dl (6.3-8.2); eGFR > 60.00
[2024-12-25 22:09] LABS: Glucose - Point of Care 199 mg/dl (70-99)
[2024-12-25 23:16] LABS: Glucose - Point of Care 143 mg/dl (70-99)
[2024-12-26] VITALS: BP 109/63
--- NOTE | 2024-12-26 02:15 | EDRN ---
Per Crisis, pt. has been accepted at [facility], ETA for transport is 0600.
[2024-12-26 04:32] LABS: Glucose - Point of Care 148 mg/dl (70-99)
--- NOTE | 2024-12-26 04:45 | PTCARENOTE ---
contacted crisis after a request from the patient to discuss the option of going home. Crisis clarified that he is under a 201 commitment. Clarification to come on options.
[2024-12-26] MEDS: HALDOL 5 MG IM (05:08)
--- NOTE | 2024-12-26 05:14 | PTCARENOTE ---
Late note due to patient care
Pt yelling and pacing in room. Rn discussed with pt the this is not a allowed behavior. If continued, mediation will be requested and administered. Pt continued to escalated behavior. Mediation was administered with physical hold by security.
Pt continued to pace int he room and attempted to elope x2. RN explained to patient that attempts to elope are not permitted, he is under a 201 commitment. Because of this he will be restrained. Pt attempted to hit staff. Pt was placed in 4 point
violent restraints with the help of security. D/C parameters were discussed and reviewed with patient.
All needs met at this time. Please see EMR for assessment and medication admin.
[2024-12-26 07:23] LABS: Glucose - Point of Care 217 mg/dl (70-99)
[2024-12-26 07:30] VITALS: BP 138/86
--- NOTE | 2024-12-26 08:28 | ED.CRISIS ---
ED Crisis Note
ED Crisis Note
Subjective:
Patient calm and cooperative apparently required restraints briefly overnight
Objective:
Complaining of some left shoulder pain after restraints diabetic will need to confirm his insulin
Assessment/Plan:
302 completed by crisis staff, left shoulder pain x-ray pending diabetes will confirm his insulin dose with pharmacy
[2024-12-26] MEDS: TYLENOL 650 MG PO (09:15)
[2024-12-26] MEDS: NOVOLOG vial 12 UNITS SC (09:59)
[2024-12-26] MEDS: MOTRIN 600 MG PO (10:54)
[2024-12-26 12:34] LABS: Glucose - Point of Care 182 mg/dl (70-99)
[2024-12-26] MEDS: NOVOLOG vial 16 UNITS SC (12:57)
--- NOTE | 2024-12-26 16:02 | W.PN.UPDATE ---
Update Note
Progress Note Update
Pt seen, record reviewed, discussed with Crisis staff. Pt presented initially voluntarily for SI with plan, subsequently 302'd when he tried to elope. Pt seen resting on stretcher, keeping left arm still due to noted fracture of humeral head. Pt
denies SI this afternoon, though affect is detached/inappropriate. No agitation at present. Pt is unkempt, disheveled. He is noted to be stressed due to legal issues. Pt is in [facility] residential care and med mgt; current psych medications
confirmed in outpatient record.
Imp: Schizoaffective d/o by history, on 302 for suicidal with plan, means (Insulin)
Rec: continue inpatient placement effort on 302- complicated by left arm/shoulder injury
will continue current outpatient medications. will follow
[2024-12-26] MEDS: MOTRIN 400 MG PO (16:24)
[2024-12-26] MEDS: PERCOCET 5/325 1 TABLET PO (16:24)
[2024-12-26 16:48] VITALS: BP 154/94
--- NOTE | 2024-12-26 17:36 | HPS.HSE ---
Addendum entered and electronically signed by Tyrone Mcconnell MD 12/26/24 18:25:
This is a consultation note.
43-year-old male with a past medical history of schizoaffective disorder, bipolar disorder, type 2 diabetes, hypertension, and hyperlipidemia who presented with suicidal ideation. He plans to take his insulin without eating. Patient tried to elope
when he was 302. He was restrained, and subsequently developed left arm pain. Shoulder x-rays are concerning for comminuted fracture of the left humeral head. Orthopedic surgery recommends left shoulder CT, which has been ordered.
He currently denies suicidal ideation. He reports his left shoulder pain is 8 out of 10.
Will treat pain, orthopedic surgery and psychiatry have been consulted.
Patient is in [facility] residential care and medical management.
Will continue his home psychiatric medications, reduce his insulin regimen to see how much he is eating, continue to monitor.
Thank you for the consult, we will follow the patient along with you.
I have personally seen and examined the patient, and agree with the plan of care as documented by LEA Stiles.
All other issues as outlined by the advanced care practitioner.
Total time spent to see the patient on the floor, examine the patient, review data and lab results, discuss treatment plan with patient, nursing staff around 76 minutes.
Original Note:
Family Physician
<LEA Stiles - Last Filed: 12/26/24 18:10>
-
Family Physician: Pavel Hgoan
Chief Complaint
<LEA Stiles - Last Filed: 12/26/24 18:10>
-
right shoulder pain
History of Present Illness
43 year old with PMH for type 2 diabetes with hyperglycemia, obesity, hyperlipidemia, hypertension, cytopenia, bipolar presented with suicidal ideation. Patient was thinking to take extra for his regular dose of insulin and not eating his food. He
denied however doing this. At present he is complaining of left upper extremities pain. Patient denied any headache, dizzy or syncope. Patient denied any fever, chills, congestion, cough. Patient denied chest pain or short of breath. Patient
denied abdominal pain, nausea, vomiting or diarrhea. Patient denied dysuria hematuria.
Patient attempted to elope last night. Since then 4 point restraints patient was complaining of left arm pain. X-ray of left arm with impression of commuted fracture through the left humeral head
Admitting for further management t
Medical History
<LEA Stiles - Last Filed: 12/26/24 18:10>
Past Medical History
Past Medical History: Reports Other
Additional Past Medical History:
Type 2 diabetes with hyperglycemia
Hyperlipidemia
Hypertension
CW
Bipolar
Past Surgical History: Reports Other
Additional Past Surgical History:
Appendectomy
Social History
Tobacco: Smoker (1 pack a day)
Alcohol: None
Drug: None
Family History
Family History: Not pertinent
Allergies / Home Medications
Allergies reflects when Allergies were last updated in [facility].
Home Medications with original date entered in [facility]
Allergy/Medication List:
Allergies
Allergy/AdvReac Type Severity Reaction Status Date / Time
No Known Allergies Allergy Verified 12/25/24 20:19
Home Medications
insulin glargine 100 unit/mL (3 mL) subcutaneous pen (Lantus Solostar U-100 Insulin) 35 units SC HS Diabetes 01/21/22
benztropine 0.5 mg tablet 0.5 mg PO BID 03/29/24
lithium carbonate 600 mg capsule 1,200 mg PO HS 03/29/24
risperidone 3 mg tablet 3 mg PO BID 03/29/24
haloperidol 0.5 mg tablet 0.5 mg PO BID 12/17/24
insulin aspart U-100 100 unit/mL (3 mL) subcutaneous pen (Novolog FlexPen U-100 Insulin aspart) 12 unit SC DAILY 12/17/24
insulin aspart U-100 100 unit/mL subcutaneous solution (Novolog U-100 Insulin aspart) 16 unit SC BID@1200,1600 12/17/24
metformin 1,000 mg tablet 1,000 mg PO BID 12/17/24
trazodone 100 mg tablet 100 mg PO HSPRN PRN sleep 12/17/24
Review of Systems
<LEA Stiles - Last Filed: 12/26/24 18:10>
-
Constitutional: Reports No Symptoms
EENT: Reports No Symptoms
Respiratory: Reports No Symptoms
Cardiac: Reports No Symptoms
Abdomen/GI: Reports No Symptoms
: Reports No Symptoms
Musculoskeletal: Reports Other (Left arm pain)
Skin: Reports No Symptoms
Neurological: Reports No Symptoms
Endocrine: Reports No Symptoms
Hematologic/Lymphatic: Reports No Symptoms
Psych: Reports No Symptoms
Physical Exam
<LEA Stiles - Last Filed: 12/26/24 18:10>
Vital Signs
Vital Signs
Temp Pulse Resp BP Pulse Ox
98.9 F 114 18 154/94 95
12/26/24 16:48 12/26/24 16:48 12/26/24 16:48 12/26/24 16:48 12/26/24 16:48
Physical Exam
General: Well Developed, Well Nourished and No Apparent Distress
HEENT: NormoCephalic, Moist mucous membranes and Atraumatic
Respiratory: Clear
Cardiac: S1/S2 and Regular Rhythm; No Murmur or Rub
GI: Soft, Non Tender, Non Distended and Normal Bowel Sounds; No Organomegaly
Rectal: Deferred by Provider
Musculoskeletal: No Clubbing, No Cyanosis and No Edema
Skin: No Rash
Neuro: AO x 3 and Nonfocal/grossly intact
Psych: Calm
Laboratory Results
<LEA Stiles - Last Filed: 12/26/24 18:10>
-
12/25/24 20:31
12/25/24 20:31
Laboratory Results
Total Bilirubin 0.6 mg/dl (0.2-1.3) 12/25/24 20:31
AST 13 U/L (17-59) L 12/25/24 20:31
ALT 14 U/L (0-50) 12/25/24 20:31
Alkaline Phosphatase 89 U/L (38-126) 12/25/24 20:31
Data Reviewed
<LEA Stiles - Last Filed: 12/26/24 18:10>
-
Diagnostic Radiology: Report Reviewed by me
Lab Data: Labs Reviewed by me
Impression/Plan
<LEA Stiles - Last Filed: 12/26/24 18:10>
-
# Commuted fracture through the left humeral head
-CT of shoulder
-Nonweightbearing
-Place sling
-Shoulder x-ray with impression of Comminuted fracture through the LEFT humeral head
-ortho consulted
History of schizoaffective
-He is on 302 for suicidal plan
-Psych following patient
-his psych meds will be continued
#Diabetes uncontrolled hyperglycemia
-Aspart 12 units continued in a.m.
-Aspirin at 16 units twice a day with lunch and dinner
-Lantus 35 units at bedtime
-Hold metformin
# DVT prophylaxis
-Lovenox subcu
<Tyrone Mcconnell MD - Last Filed: 12/26/24 18:19>
-
# Commuted fracture through the left humeral head
-CT of shoulder
-Nonweightbearing
-Place sling
-Shoulder x-ray with impression of Comminuted fracture through the LEFT humeral head
-ortho consulted
History of schizoaffective
-He is on 302 for suicidal plan
-Psych following patient
-his psych meds will be continued
#Diabetes uncontrolled hyperglycemia
-Aspart 12 units continued in a.m.
-Aspirin at 16 units twice a day with lunch and dinner
-Lantus 25 units at bedtime
-Hold metformin
# DVT prophylaxis
-Lovenox subcu
[2024-12-26 18:48] LABS: Glucose - Point of Care 174 mg/dl (70-99)
[2024-12-26] MEDS: RISPERDAL 3 MG PO (19:19)
[2024-12-26] MEDS: HALDOL 0.5 MG PO (19:20)
[2024-12-26] MEDS: GLUCOPHAGE 1000 MG PO (19:20)
[2024-12-26] MEDS: NICODERM TRANSDERMAL 21 MG TRANSDERM (19:49)
[2024-12-26] MEDS: COGENTIN 0.5 MG PO (19:50)
[2024-12-26] MEDS: LANTUS 0.2 UNITS SC (19:50)
[2024-12-26] MEDS: NOVOLOG FLEXPEN 12 UNITS SC (19:51)
[2024-12-26] MEDS: NOVOLOG FLEXPEN-MODERATE RESISTANCE 1 UNITS SC (19:51)
[2024-12-26] MEDS: ESKALITH REGULAR RELEASE 1200 MG PO (21:17)
--- NOTE | 2024-12-26 21:28 | ED.ADDNOTE ---
ED Addendum
ED Addendum
ED Addendum Note:
The care of patient was transitioned pending crisis bed search and orthopedic discussion. I discussed case with Orthopedist Dr. Ramos who evaluated the CT of the extremity. Based on injury pattern, he discussed that this could be operative versus
nonoperative but depends on patient preference. Regardless, he indicated this is done in the outpatient setting and did not feel the patient needs to be admitted for urgent surgery. Crisis aware and will start bed search
[2024-12-26] MEDS: NOVOLOG vial SC (21:30)
[2024-12-26 22:26] VITALS: BP 131/84
[2024-12-26] MEDS: ROXICODONE 5 MG PO (23:25)
[2024-12-27] MEDS: ROXICODONE 5 MG PO (05:50)
[2024-12-27 06:27] LABS: Blood Urea Nitrogen 8 mg/dl (9-20); Calcium 9.1 mg/dl (8.4-10.2); Carbon Dioxide 26 mmol/L (22-30); Chloride 102 mmol/L (98-107); Glucose 192 mg/dl (70-99); Lithium 0.8 mmol/L (0.6-1.2); Potassium 4.1 mmol/L (3.5-5.1); Sodium 134 mmol/L (135-145); eGFR > 60.00
[2024-12-27 06:28] LABS: Hematocrit 35.3 % (39.0-52.0); Hemoglobin 11.8 g/dL (13.0-18.0); Mean Corp Hgb Conc. 33.4 g/dL (33.0-37.0); Mean Corpuscular Hgb 30.2 pg (27.0-31.0); Mean Corpuscular Volume 90.3 fL (80.0-94.0); Mean Platelet Volume 13.3 fL (7.4-10.4); Platelet Count 125 10^3/uL (130-400); Red Blood Cell Count 3.91 10^6/uL (4.70-6.10); Red Cell Dist. Width 13.7 % (11.5-14.5); White Blood Cell Count 11.2 10^3/uL (4.8-10.8)
--- NOTE | 2024-12-27 07:53 | CON.ORTHO ---
Consultation
-
Date/Time Consultation Requested: 12/26/2024; time unknown
Date/Time Consultation Performed: 12/27/2024; 0730
Requesting Provider: unknown
Performing Provider: Joselin Ramos PA-C for Dr. Shyam Johnson
Reason for Consultation: Left proximal humerus fracture
Consultation - Orthopedics
History
Mr. Carias is a 43-year-old male with a past medical history of schizoaffective disorder, bipolar disorder, type 2 diabetes, hypertension, and hyperlipidemia. He presented to due to suicidal ideation, and attempted to elope while restraints
were in place. Shortly after, he complained of pain in the left shoulder. CT scan reveals a comminuted fracture of his proximal humerus. He is resting comfortably in bed this morning, but does endorse mild aching about the shoulder. He denies
treatment for his shoulder in the past. He denies pain elsewhere.
Allergies / Home Medications
Allergy/AdvReac Type Severity Reaction Status Date / Time
No Known Allergies Allergy Verified 12/25/24 20:19
�Medication �Instructions �Recorded
insulin glargine 100 unit/mL (3 35 units SC HS Diabetes 01/21/22
mL) subcutaneous pen (Lantus
Solostar U-100 Insulin)
benztropine 0.5 mg tablet 0.5 mg PO BID 03/29/24
lithium carbonate 600 mg capsule 1,200 mg PO HS 03/29/24
risperidone 3 mg tablet 3 mg PO BID 03/29/24
haloperidol 0.5 mg tablet 0.5 mg PO BID 12/17/24
insulin aspart U-100 100 unit/mL 12 unit SC DAILY 12/17/24
(3 mL) subcutaneous pen (Novolog
FlexPen U-100 Insulin aspart)
insulin aspart U-100 100 unit/mL 16 unit SC BID@1200,1600 12/17/24
subcutaneous solution (Novolog
U-100 Insulin aspart)
metformin 1,000 mg tablet 1,000 mg PO BID 12/17/24
trazodone 100 mg tablet 100 mg PO HSPRN PRN sleep 12/17/24
Vital Signs / Lab Results
Temp Pulse Resp BP Pulse Ox
98.9 F 98 18 131/84 97
12/26/24 16:48 12/26/24 22:26 12/26/24 16:48 12/26/24 22:26 12/26/24 22:26
12/27/24 05:43
12/27/24 05:43
XR Left Shoulder IMPRESSION:
Comminuted fracture through the LEFT humeral head, as above.
LUE CT IMPRESSION:
1. ACUTE MILDLY IMPACTED FRACTURE of the LEFT PROXIMAL HUMERUS involving the humeral neck and greater tuberosity.
2. No CT evidence for displaced fracture fragments or dislocation of the humeral head.
3. 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
4. Large amount of acute edema and hemorrhage in the deltoid muscle, left pectoralis major muscle, and subcutaneous fat of the left upper arm.
5. Chronic healed fracture of the sternum.
Directed exam of the left upper extremity reveals significant edema about the shoulder and chest. Developing ecchymosis in this area. No significant tenderness to palpation about the shoulder at present. ROM deferred secondary to known fracture.
Full ROM of elbow, wrist and hand. Neurovascularly intact distally.
Assessment / Plan
Comminuted, impacted fracture of the left proximal humerus
--Unfortunately, Tony sustained a fracture of his left proximal humerus. This is somewhat impacted, and at present is stable for outpatient follow-up. We discussed that no immediate surgical intervention is necessary at this time. We did discuss
that surgery could be considered in the future. For now, I recommended immobilization of the left upper extremity. He is unable to utilize a sling due to SI, but if he is allowed a sweatshirt, could consider swathing arm to the torso. He is to avoid
ROM of his shoulder, but may perform gentle ROM of his elbow, wrist and hand. He is to remain non-weight bearing to his left upper extremity. Pain control prn. Ice and elevation for edema control. Patient may follow up in our outpatient office in
the next week or so, or when stable from a mental health perspective.
[2024-12-27 07:57] LABS: Glucose - Point of Care 214 mg/dl (70-99)
[2024-12-27] MEDS: GLUCOPHAGE 1000 MG PO (07:57)
[2024-12-27] MEDS: COGENTIN 0.5 MG PO (07:58)
[2024-12-27] MEDS: RISPERDAL 3 MG PO (07:58)
[2024-12-27 08:00] VITALS: BP 127/87
[2024-12-27 09:21] LABS: Glycohemoglobin (HgbA1c) 7.5 % (4.0-5.6)
[2024-12-27] MEDS: NICODERM TRANSDERMAL 21 MG TRANSDERM (09:39)
[2024-12-27] MEDS: HALDOL 0.5 MG PO (09:52)
[2024-12-27] MEDS: NOVOLOG FLEXPEN-MODERATE RESISTANCE 3 UNITS SC (09:54)
[2024-12-27] MEDS: NOVOLOG FLEXPEN 10 UNITS SC (09:55)
--- NOTE | 2024-12-27 11:00 | CON.MD ---
Addendum entered and electronically signed by Liberty Walton MD 12/27/24 11:29:
lithium level o.8
Original Note:
Consultation - Medical
-
patient seen chart reviewed. discussed with dr quarles. spoke w patient's mother. this patient very well known to me as i have rx him here at as well as in [facility]. the patient resides in [facility] housing and sees dr lynda casarez. he has hx
schizoaffective d/o and has been followed by dr casarez at [facility]. current meds haldol o.5 mg bid lithium 1200 mg q hs risperdal 6 mg daily also prn trazodone 150 mg q hs. the patient is depressed. he said he has not visited [place] over the past
several years. he struggles with legal issues and is on probation for the next 7 years. energy level is not good. appetite is erratic..he has gained weight. he has had suicidal thoughts and has considered using insulin to kill self but told me at
this point he is no suicidal and he wants to get well. he is not currently overtly psychotic. he enjoys watching tv....sit coms etc. he does feel his medications have helped him over past months is struggling right now w dysphoria patient
sustained fx humerus during interaction with staff here when he tried to leave. a 302 petition was filed by ceramic worker and upheld by physician yesterday.
past psych hx patient has been admitted many times for mood and psychosis. he has been at [facility] many times as well as in the [facility]. currently resides in [facility] and sees dr casarez as an out patient. last seen nov
admitted to but no intent or plan (intermittent and fleeting) he was not psychotic at that time. he sees a peer supporter. he sees masoud gomez in [facility] for therapy. re insulin patient has in the talked about taking insulin and not
eating as a suicide method or not taking insulin and overeating. he is at this point stating he is motivated to get better not persist in negative thoughts. he told me he has not acted on these thoughts. he has taken many different antipsychotics
feels currently are the best.
medical hx dr boo is pcp. patient w hx iddm last blood sugar today 192 a1c 7.5 patient is overweight. sustained fx humerus see above. ortho consult recommended immobilization for now / watching and reassessing in the future re need for
surgery. bp 127/87
substance abuse hx cannabis abuse not currently
fh non contributory
social hx see above re living arrangement. mother is very supportive of him. bio parents and have kids from other marriages he is the only one from their union. 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 had some jobs but
not in recent years. told me mom wants him to get a job. suki identifies as doyle. this has been a source of conflict for him w mother. he was once now . he is on disability. he is on probation for seven years for internet related
charges
mse alert ox3 cooperative speech and thought process nl depressed affect constricted denies currently suicidal but does not deny fleeting si has been an issue. no psychosis overtly. average intelligence cognition ok insight judgment fair to poor
dx schizoaffective d/o bipolar type depressed
plan suki is agreeable to the [facility] program which i believe can provide him with a structured supportive milieu in which he can work on many issues. would recommend then php at [facility] then [facility]. he is agreeable to this plan. 302 commitment is
not released. he will be a voluntary patient. for now continue w current medications which have been sent to [facility] by dr quarles. he is wearing an immobilizer for the shoulder but will need followup with ortho as per ortho consult.
[2024-12-27 11:37] LABS: Glucose - Point of Care 230 mg/dl (70-99)
--- NOTE | 2024-12-27 12:07 | EDRN ---
Pt transported to [facility] prior to lunch and insulin due before lunch. Tolerated Shoulder immobilizer well. oil field worker given medical discharge papers that Dr Alves had printed out with list of meds that he had electronically sent also.
== END 2024-12-27 12:09 ==
LOC: EMR 20:13
PROVIDERS: Emergency Medicine; Psychiatry & Neurology Psychiatry; Registered Nurse; CONSULT PHYSICIAN Hospitalist; CONSULT PHYSICIAN Orthopaedic Surgery; CONSULT PHYSICIAN Psychiatry & Neurology Psychiatry; EMERGENCY PHYSICIAN Emergency Medicine; FAMILY PHYSICIAN Internal Medicine
DX: F32.A Depression, unspecified (principal); R45.851 Suicidal ideations; S42.202A Unspecified fracture of upper end of left humerus, initial encounter for closed fracture; X58.XXXA Exposure to other specified factors, initial encounter; E11.65 Type 2 diabetes mellitus with hyperglycemia; M79.602 Pain in left arm; I10 Essential (primary) hypertension; E78.00 Pure hypercholesterolemia, unspecified; F17.210 Nicotine dependence, cigarettes, uncomplicated; F25.9 Schizoaffective disorder, unspecified; Z79.4 Long term (current) use of insulin; Z78.1 Physical restraint status
CPT/HCPCS: 96372; 99285; 73030; 73200; 80048; 80053; 80178; 80306; 82962; 83036; 85025; 85027; 93005

== ENCOUNTER 2025-02-27 08:07 | Outpatient (RCR) | payer OTHER, SELFPAY | END 2025-02-27 23:59 | disposition home or self-care (01) | LOC: RPT 08:07 | PROVIDERS: ATTENDING PHYSICIAN Physician Assistant; FAMILY PHYSICIAN Internal Medicine | DX: S42.202D Unspecified fracture of upper end of left humerus, subsequent encounter for fracture with routine healing (principal); Z73.6 Limitation of activities due to disability; M62.81 Muscle weakness (generalized) | CPT/HCPCS: 97110; 97162 ==

== ENCOUNTER 2025-05-14 17:13 | Emergency (ER) | payer OTHER, SELFPAY ==
[2025-05-14 17:19] VITALS: BP 125/85
[2025-05-14 17:24] LABS: Glucose - Point of Care 170 mg/dl (70-99)
[2025-05-14 18:02] LABS: Hematocrit 44.1 % (39.0-52.0); Hemoglobin 14.1 g/dL (13.0-18.0); Mean Corp Hgb Conc. 32.0 g/dL (33.0-37.0); Mean Corpuscular Volume 93.0 fL (80.0-94.0); Nucleated Red Blood Cells % 0 % (-); Platelet Count 152 10^3/uL (130-400); Red Cell Dist. Width 13.6 % (11.5-14.5)
[2025-05-14 18:10] LABS: ALT (SGPT) 12 U/L (0-50); AST (SGOT) 14 U/L (17-59); Albumin 4.7 g/dl (3.5-5.0); Alkaline Phosphatase 103 U/L (38-126); Blood Urea Nitrogen 6 mg/dl (9-20); Calcium 9.3 mg/dl (8.4-10.2); Carbon Dioxide 26 mmol/L (22-30); Chloride 102 mmol/L (98-107); Glucose 173 mg/dl (70-99); Potassium 4.4 mmol/L (3.5-5.1); Sodium 139 mmol/L (135-145); Total Protein 7.4 g/dl (6.3-8.2); eGFR > 60.00
== END 2025-05-14 19:58 ==
LOC: EMR 17:13
PROVIDERS: Emergency Medicine
DX: R73.9 Hyperglycemia, unspecified (principal)
CPT/HCPCS: 80053; 82962; 85025

== ENCOUNTER 2025-05-22 14:37 | Emergency (ER) | payer OTHER, SELFPAY ==
[2025-05-22 14:41] VITALS: BP 140/84; BMI 32.6
--- NOTE | 2025-05-22 14:50 | ED.GENMED ---
History of Present Illness
General
Chief Complaint: Suicidal Ideation
Time Seen by Provider: 05/22/25 14:43
History of Present Illness
History of Present Illness:
44-year-old male with history of schizophrenia and bipolar disorder presents to the emergency department after suicide attempt. Patient states that he intentionally administered 16 units of NovoLog to himself despite not eating and despite his
blood sugar being low. He resides in a group facility and normally staff administers his medications however he states he was taking his insulin with him to 'an afternoon group I go to on Tuesdays'. When questioned he states he did this with a
direct intent to kill himself. When asked why, he states 'because I am a clinical record'. He states he has thought about doing this for several weeks at this point. Denies any other coingestants. Denies alcohol or illicit substance use today.
Denies hallucinations
Past History
Past History
ED Past Medical History: HTN, Hypercholesterolemia, NIDDM, Psychiatric (Bipolar, ADHD, schizophrenia) and Other (Thrombocytopenia, fatty liver)
ED Past Surgical History: Appendectomy
Social History
Tobacco: Non-smoker
Alcohol: None
Drug: Former user (Cocaine/Meth)
Personal:
Living: with family
Family History
Family History: Negative Diabetes
Review of Systems
Review of Systems
Allergies reviewed?: Yes
All Other Systems: ROS reviewed and negative except as documented in HPI and ROS
Phy Exam
Physical Exam
Physical Exam:
GEN: Well appearing, NAD, WDWN
HEENT: Oral mucosa moist, no scleral icterus
Cardiac: Regular rate and rhythm, no murmurs
Lung: No respiratory distress, no tachypnea
MSK: No gross deformity or injuries
Skin: Good color, no pallor or jaundice, no rashes
Neuro: AO x3, moves all extremities freely
Psych: Calm, cooperative
Course
Orders/Labs/Results
Orders:
Orders
05/22/25 14:50
Crisis Consult Urgent
Reason for Consult: SI
05/22/25 14:53
1:1 Observation - Suicide/ Violent Behavior As Directed
05/22/25 15:02
Complete Blood Count/With Diff Urgent
Comprehensive Metabolic Panel Urgent
05/22/25 17:13
Nicotine [Nicoderm Transdermal] 21 mg TRANSDERM NOW STA
05/22/25 17:53
Dextrose 50%-Water [Dextrose 50% Syringe] 12.5 grams IV [id number] PRN
Glucagon [GlucaGen] 1 mg IM PRN PRN
05/22/25 17:55
METFORMIN HCl [Glucophage] 1,000 mg PO BID@0800,1700
05/22/25 19:20
Urine Drug Abuse Screen Urgent
Date Specimen was Collected: 05/22/25
Time Specimen was Collected: 19:19
05/22/25 19:27
Insulin Aspart [NOVOLOG vial] 2 units SC NOW STA
05/22/25 20:00
Benztropine [Cogentin] 0.5 mg PO BID
Risperidone [Risperdal] 3 mg PO BID
05/22/25 22:00
Insulin Glargine Lantus [Lantus] 20 units Subcutaneous Insulin Syringe [Syringe-Insulin] 0 unit SC HS
[place] Carbonate Regular Rel. [Eskalith Regular Release] 1,200 mg PO HS
05/23/25 Breakfast
2000 calorie (17 carb) Diabetic
At Your Request: Full Participation
05/23/25 07:30
Insulin Aspart Corrective Low [Novolog Flexpen-Low Resistance] See Protocol SC AC
Abnormal Lab Results
05/22/25 05/22/25 05/22/25
14:49 15:02 15:31
WBC 13.9 H 10^3/uL
(4.8-10.8)
RBC 4.18 L 10^6/uL
(4.70-6.10)
Hgb 12.4 L g/dL
(13.0-18.0)
Hct 38.8 L %
(39.0-52.0)
MCHC 32.0 L g/dL
(33.0-37.0)
MPV 13.7 H fL
(7.4-10.4)
Abs Immat Gran (auto) 0.1 H 10^3/uL
(0-0.05)
Absolute Neuts (auto) 10.1 H 10^3/uL
(1.4-6.5)
Absolute Monos (auto) 1.3 H 10^3/uL
(0.1-0.6)
Lymphocytes % 13.4 L %
(20.5-51.1)
Monocytes % 9.5 H %
(1.7-9.3)
BUN 4 L mg/dl
(920)
Creatinine 0.6 L mg/dL
(0.7-1.3)
Glucose 130 H mg/dl
()
AST 14 L U/L
()
POC Glucose 142 H mg/dl 131 H mg/dl
() (-99)
05/22/25 05/22/25
17:14 19:16
WBC
RBC
Hgb
Hct
MCHC
MPV
Abs Immat Gran (auto)
Absolute Neuts (auto)
Absolute Monos (auto)
Lymphocytes %
Monocytes %
BUN
Creatinine
Glucose
AST
POC Glucose 152 H mg/dl 228 H mg/dl
(-99) (70-99)
05/22/25 15:02
05/22/25 15:02
Vital Signs
Initial and Last Documented VS:
Initial Vital Signs
Temp Pulse Resp BP Pulse Ox
98.2 F 104 16 140/84 97
05/22/25 14:41 05/22/25 14:41 05/22/25 14:41 05/22/25 14:41 05/22/25 14:41
Last Documented Vital Signs
Temp Pulse Resp BP Pulse Ox
98.2 F 102 16 130/84 96
05/22/25 14:41 05/22/25 16:50 05/22/25 16:50 05/22/25 16:50 05/22/25 16:50
MDM/Problems Addressed
MDM/Problems Addressed:
Due to intentional suicide attempt, although it is not felt to be likely that he actually used his insulin given lack of hypoglycemic episode, he will be admitted under voluntary psychiatric admission. Awaiting bed placement at time of shift change.
*Pulse Oximetry
Patient hypoxic: no
*Critical Care Note
Total Time (30-74mins, 75-104mins- exclusive of procedures): Not Applicable
ED Attending Note
-
Portions of this chart may have been created with voice recognition software.� Occasional wrong word or��sound alike� substitutions may have occurred due to the inherent limitations of voice recognition software.
Discharge Plan
Departure
Patient Disposition: Psych Facility
Date of Disposition: 05/22/25
Time of Disposition: 17:33
Discharge Problem:
Suicide attempt
Prescriptions:
No Action
benztropine 0.5 mg tablet
0.5 mg PO BID
risperidone 3 mg tablet
3 mg PO BID
lithium carbonate 600 mg capsule
1,200 mg PO HS
insulin aspart U-100 [Novolog U-100 Insulin aspart] 100 unit/mL Solution
16 unit SC QACLUNCH
metformin 1,000 mg tablet
1,000 mg PO BID Qty: 30 0RF
insulin glargine [Lantus U-100 Insulin] 100 unit/mL solution
20 unit SC QPM Qty: 10 0RF
insulin aspart U-100 [Novolog U-100 Insulin aspart] 100 unit/mL solution
16 unit SC QACDINNER Qty: 10 0RF
Rx Instructions:
at 1630pm
insulin aspart U-100 [Novolog FlexPen U-100 Insulin] 100 unit/mL (3 mL) insulin pen
12 unit SC QACBREAK Qty: 15 0RF
Referrals:
Pavel Hogan I., DO [Primary Care Provider, Internal Medicine]
UNKNOWN - PT NOT,INTERVIEWE [Family Provider]
Interventions
Interventions:
*Risk Screen - Suicide Last Done: 05/22/25 14:41
*General Assessment Last Done: 05/22/25 14:41
*Neglect/Abuse Screening Last Done: 05/22/25 14:41
*ED- Fall Risk Assessment Last Done: 05/22/25 14:54
*ED COVID-19 Vaccine History Last Done: 05/22/25 14:54
ED-Psychological Assessment Last Done: 05/22/25 14:55
Discharge Date and Time
Print Language: MONEGASQUE
[2025-05-22 14:52] LABS: Glucose - Point of Care 142 mg/dl (70-99)
[2025-05-22 15:22] LABS: Hematocrit 38.8 % (39.0-52.0); Hemoglobin 12.4 g/dL (13.0-18.0); Mean Corp Hgb Conc. 32.0 g/dL (33.0-37.0); Mean Corpuscular Volume 92.8 fL (80.0-94.0); Nucleated Red Blood Cells % 0 % (-); Platelet Count 146 10^3/uL (130-400); Red Cell Dist. Width 13.8 % (11.5-14.5)
[2025-05-22 15:32] VITALS: BP 130/76
--- NOTE | 2025-05-22 15:32 | EDRN ---
Pt was playing cards w/ tech and felt faint. Pt was assisted to lie down, accucheck done and vital signs. Now placing pt on electronic device monitor. Piedad DAVIS was sent a TT.
[2025-05-22 15:33] LABS: Glucose - Point of Care 131 mg/dl (70-99)
[2025-05-22 15:43] LABS: ALT (SGPT) 11 U/L (0-50); AST (SGOT) 14 U/L (17-59); Albumin 4.1 g/dl (3.5-5.0); Alkaline Phosphatase 72 U/L (38-126); Blood Urea Nitrogen 4 mg/dl (9-20); Calcium 8.8 mg/dl (8.4-10.2); Carbon Dioxide 25 mmol/L (22-30); Chloride 105 mmol/L (98-107); Estimated Creatinine Clearance > 125 ml/min; Glucose 130 mg/dl (70-99); Potassium 4.2 mmol/L (3.5-5.1); Sodium 136 mmol/L (135-145); Total Protein 6.4 g/dl (6.3-8.2); eGFR > 60.00
--- NOTE | 2025-05-22 16:19 | EDRN ---
Diet order placed for pt at this time.
--- NOTE | 2025-05-22 16:49 | EDRN ---
Pt taken off of rod finisher at this time. Pt still getting intermittent dizzy spells, vital signs are stable and surgar was 130.
[2025-05-22 16:50] VITALS: BP 130/84
[2025-05-22 17:15] LABS: Glucose - Point of Care 152 mg/dl (70-99)
--- NOTE | 2025-05-22 17:17 | EDRN ---
NIcotine patch pt requested ordered at this time.
[2025-05-22] MEDS: NICODERM TRANSDERMAL 21 MG TRANSDERM (17:30)
[2025-05-22] MEDS: GLUCOPHAGE 1000 MG PO (19:10)
[2025-05-22] MEDS: COGENTIN 0.5 MG PO (19:10)
[2025-05-22 19:17] LABS: Glucose - Point of Care 228 mg/dl (70-99)
[2025-05-22] MEDS: NOVOLOG vial 2 UNITS SC (19:32)
[2025-05-22] MEDS: RISPERDAL 3 MG PO (19:51)
[2025-05-22 20:34] LABS: Glucose - Point of Care 208 mg/dl (70-99)
[2025-05-22 20:50] VITALS: BP 152/87
== END 2025-05-22 22:11 ==
LOC: EMR 14:37
PROVIDERS: Physician Assistant; EMERGENCY PHYSICIAN Emergency Medicine; PRIMARYCARE PHYSICIAN Internal Medicine
DX: T38.3X2A Poisoning by insulin and oral hypoglycemic [antidiabetic] drugs, intentional self-harm, initial encounter (principal); E11.9 Type 2 diabetes mellitus without complications; F31.9 Bipolar disorder, unspecified; I10 Essential (primary) hypertension; E78.00 Pure hypercholesterolemia, unspecified; F20.9 Schizophrenia, unspecified; K76.0 Fatty (change of) liver, not elsewhere classified; F90.9 Attention-deficit hyperactivity disorder, unspecified type; D69.6 Thrombocytopenia, unspecified
CPT/HCPCS: 99285; 96372; 80053; 80306; 82962; 85025